=== PATIENT | male | born 1980 | race Caucasian/White ===

== ENCOUNTER 2018-05-21 09:42 | Day surgery (SDC) | payer OTHER ==
[2018-05-21] MEDS ORDERED: NA CHLORIDE 0.9% 1,000 ML ONE ×2 (09:58→12:56)
[2018-05-21] MEDS: OXYMETAZOLINE HCL 0.05% 15ML NAS ONE ×4 (10:01→12:30)
[2018-05-21] MEDS ORDERED: OXYMETAZOLINE HCL 0.05% 15ML NAS ONE ×2 (10:19→14:11)
[2018-05-21] MEDS ORDERED: NA CHLORIDE 0.9% 500 ML ONE (10:19)
[2018-05-21] MEDS: LIDOCAINE 1.5% W/EPI AMP 5 ML ONE ×2 (10:59→12:16)
[2018-05-21] MEDS ORDERED: MIDAZOLAM HCL 2 MG/2 ML INJ ONE (12:05)
[2018-05-21] MEDS ORDERED: PROPOFOL 200 MG/20 ML VIAL IV ONE (12:14)
[2018-05-21] MEDS ORDERED: ONDANSETRON 4 MG/2 ML VIAL ONE (12:15)
[2018-05-21] MEDS ORDERED: ROCURONIUM 50 MG/5 ML VIAL IV ONE (12:15)
[2018-05-21] MEDS ORDERED: LIDOCAINE 2% MPF 5 ML VIAL ONE ×2 (12:15→14:41)
[2018-05-21] MEDS ORDERED: FENTANYL CITR 100 MCG/2 ML ONE ×3 (12:15→13:09)
[2018-05-21] MEDS ORDERED: NEOSTIGMINE 1 MG/ML -10 ML VIAL ONE (13:10)
[2018-05-21] MEDS ORDERED: GLYCOPYRROLATE 0.2 MG/ML SYR ONE (13:10)
[2018-05-21] MEDS ORDERED: LABETALOL 20 MG/4ML SYRINGE IV ONE (14:51)
[2018-05-21] MEDS: HYDROMORPHONE HCL 1 MG/ML INJ ONE ×4 (15:24→15:39)
[2018-05-21] MEDS ORDERED: INSULIN -REGULAR HUMAN 50 UNIT/0.5 ML ML ONE ×2 (15:28→16:10)
[2018-05-21] MEDS ORDERED: HYDROMORPHONE HCL 1 MG/ML INJ ONE (16:02)
[2018-05-21] MEDS ORDERED: TRAMADOL HCL 50 MG TAB ONE (17:05)
[2018-05-21] MEDS ORDERED: ONDANSETRON 4 MG (ODT) TAB ONE (17:50)
--- NOTE | 2018-05-22 19:15 | OP ---
Date of Procedure: 05/21/2018 Surgeon: Danielle Rodríguez MD Preoperative Diagnosis: Chronic greene sinusitis. Postoperative Diagnosis: Chronic greene sinusitis with nasal polyps. Indication For Procedure: Mr. Ferrer presented to the clinic with complaints of chronic sinusitis. Evaluation including a culture was performed showing a primary culture of Staph epidermidis with a small amount of Corynebacterium segmentosum. The patient was treated with amoxicillin and Bactrim an d has an underlying diagnosis of type 1 diabetes. After maximal medical therapy he underwent a post treatment CT scan demonstrating complete opacification of the bilateral ethmoid sinuses with partial opacification of the left sphenoid, bilateral maxillary, bilateral frontal sinuses and was also noted to have a right septal spur. The risks, benefits, and alternatives to the surgery were discussed wi th the patient. Due to work restrictions surgery was delayed. The patient also underwent RAST testi showing a positive reaction to dogs, cockroaches, [place], [place] and Jose F grass. Procedure: Bilateral maxillary antrostomy with nasal endoscopy, bilateral nasal endoscopy with total ethmoid and sphenoidotomy, bilateral nasal endoscopy with frontal sinusotomy and stereotactic CT lio igation intraoperatively with extradural cranial location. Complications: None. Specimens: Bilateral sinonasal contents and right middle meatus for an aerobic culture. Blood Loss: Approximately 250 mL. Description Of Procedure: The patient was brought to the operating room. He was placed under genera l anesthesia via oral endotracheal tube. The head of bed was turned [address] lio igation device was secured to the patient's forehead and the post treatment CT scan was loaded into t [employer] system. Registration was performed with the laser pointer in accordance with surgical supervisor's direc tions and the accuracy was felt to be excellent. Verified by [id number] matching including the t ip of the nose, the base of the columella and the bilateral medial lateral canthi. The patient was p repped and draped in a standard fashion for sinus surgery. A 0-degree endoscope was used to perform a nasal endoscopy. The left nasal cavity was noted to have good decongestion following application o f the Afrin with an overall unremarkable appearance of the inferior turbinate and the middle turbinat e. The right nasal cavity turbinates were likewise unremarkable with a prominent septal spur. Need for septoplasty for access was uncertain based on the appearance and was deferred until later in the procedure. The left side was addressed first. The middle turbinate was medialized with a [place]. Th e uncinate process was noted and the ethmoid bulla area appeared significantly edematous with polypoi d swelling. The uncinate process was removed using the backbiter and 90-degree Blakesley. There was severe swelling around the antrostomy. The antrostomy was enlarged by removal of soft and bony tiss ue until an adequate opening was created. There was thick mucoid secretions within the sinus and for ceful irrigation was performed. Photo documentation using a 30 degree and 70 degree scope was obtain ed. The sinus mucosa was moderately to severely edematous, but was not removed in interest of avoidi ng complete demucosalization. Afrin-soaked pledgets were packed intermittently into the nose to aid in hemostasis. After completion of the maxillary antrostomy, the 0-degree endoscope with the [employer] t navigation suction was used in order to perform ethmoidectomy. The curette was used to dissect the ethmoid cells. The straight 45 and 90-degree [place] were used to remove the edematous polypoid m ucosa and bony fragments. A navigation suction was used to identify the location of the lamina as we ll as the posterior-most aspects of the ethmoid cavity and the skull base. Once these landmarks were identified 30- and 70-degree endoscopes were used to visualize the more anterior aspects of the skul l base and perform dissection in order to remove bony fragments and to open the frontal recess. The frontal recess and frontal sinus were opened and well visualized, but the mucosa within the frontal r ecess was persistently edematous. The decision was made to avoid complete removal and demucosalizati on of the frontal recess in light of the ability to now provide topical medications to these areas. Afrin-soaked pledgets were packed into the left sinus cavities and the right side for several minutes and then removed. The 0-degree endoscope with the straight navigation suction was then used for guadalupe ntification of the sphenoid recess. The sphenoid recess was difficult to cannulate with the suction due to its size and the Entellus balloon was used to carefully palpate along the face of the sphenoid in order to locate the natural os. After locating the natural os, it was dilated. Then following t his dilation, I was able to use the microdebrider with the inferior turbinate blade as well as the sp henoid punch in order to enlargen the sphenoid osteotomy. The sphenoid was suctioned and had copious thick eosinophilic like mucosa. I did not see any evidence of fungal debris or debris suggestive of allergic fungal sinusitis at this time. Afrin-soaked pledgets were applied to the left nasal cavity and attention was turned to the right side. A similar procedure was performed on the right side wit h opening of the maxillary sinus due to the amount of bleeding and inflammation. After removal of th e uncinate and initial probing of the maxillary, attention was turned to the ethmoid and the maxillar y sinus was addressed later in the case. The ethmoid air cells were dissected. There was lots of po lypoid tissue and during removal of this polypoid tissue a large fragment of the middle turbinate was inadvertently removed. Great care was undertaken during further portions of the dissection due to t he loss of this landmark in order to avoid violation of the skull base. Dissection was carried out a long the lamina and to the posterior air cells and onto the face of the sphenoid. Dissection was car ried out along the skull base using the 90-degree Blakesley as well as the front to back and side-to- side Giraffe with the 30- and 70-degree scopes. The right frontal recess was widely opened and thoro ughly irrigated. The right sphenoid was dilated with the balloon and then the os was enlarged by rem oval of bony and soft tissue. During dissection of the frontal recess due to the degree of edema, it was difficult to confirm the location of the frontal recess and the Entellus balloon was used to aid in navigating and ensuring the true frontal recess was probed in order to avoid injury to the skull base. Photo documentation of the frontal sinusotomy was obtained. Then attention was turned back to the lateral nasal wall and the maxillary antrostomy was refined by removal of polypoid soft tissue. The lining of the maxillary sinus was noted to be moderately edematous, but demucosalization of the sinus was avoided. At the conclusion of the case the sinuses were forcefully irrigated with several 100 mL of normal saline and were thoroughly suctioned. Additional thick eosinophilic mucus was sucti oned from the left sinus. Finally, a PROPEL Mini steroid eluting stent was placed under endoscopic g uidance into the bilateral frontal recess. A standard propel was placed within the ethmoid cavity of both sides. Due to mild oozing a Xerogel piece of dissolvable sinus packing was folded and placed w ithin the bilateral ethmoid cavity and soaked with nasal saline. The nasopharynx was thoroughly suct ioned. The decision to include septoplasty was deferred due to risks of increased pain, decreased co mpliance in postoperative care and increased pain and discomfort with postoperative debridements. Th e patient will be reassessed through the healing period. Regarding the health of the sinuses overall , the condition and treatment for his respiratory allergens and consideration for allergy referral wi ll be discussed. Given the patient's underlying diabetes, I will plan to start him on steroid irriga tions for the sinuses likely at his first postoperative visit pending overall appearance. I will con tact the patient on Thursday regarding results of the culture and order to start antibiotic therapy and assess whether formal septoplasty is needed based on the degree of symptoms once the sinus and aller gy issues are adequately treated. IAM Voice ID: [id number] Report ID: [id number]
== END 2018-05-21 17:50 | disposition home or self-care (01) ==
LOC: OR 09:42
PROVIDERS: ATTEND Otolaryngology
PROC: 09BU8ZZ Excision of Right Ethmoid Sinus, Via Natural or Artificial Opening Endoscopic (ICD-10-PCS; 2018-05-21)
PROC: 09BT8ZZ Excision of Left Frontal Sinus, Via Natural or Artificial Opening Endoscopic (ICD-10-PCS; 2018-05-21)
PROC: 09BW8ZZ Excision of Right Sphenoid Sinus, Via Natural or Artificial Opening Endoscopic (ICD-10-PCS; 2018-05-21)
PROC: 09BX8ZZ Excision of Left Sphenoid Sinus, Via Natural or Artificial Opening Endoscopic (ICD-10-PCS; 2018-05-21)
PROC: 09BQ8ZZ Excision of Right Maxillary Sinus, Via Natural or Artificial Opening Endoscopic (ICD-10-PCS; 2018-05-21)
PROC: 09BR8ZZ Excision of Left Maxillary Sinus, Via Natural or Artificial Opening Endoscopic (ICD-10-PCS; 2018-05-21)
PROC: 09BS8ZZ Excision of Right Frontal Sinus, Via Natural or Artificial Opening Endoscopic (ICD-10-PCS; 2018-05-21)
PROC: 8E09XBZ Computer Assisted Procedure of Head and Neck Region (ICD-10-PCS; 2018-05-21)
PROC: 09BV8ZZ Excision of Left Ethmoid Sinus, Via Natural or Artificial Opening Endoscopic (ICD-10-PCS; principal; 2018-05-21 11:15)
DX: J32.4 Chronic pansinusitis (principal); J34.2 Deviated nasal septum; J33.9 Nasal polyp, unspecified; E10.9 Type 1 diabetes mellitus without complications; Z79.4 Long term (current) use of insulin
CPT/HCPCS: 82962; 87070; 88304; 88305; 88312; J1170; J2001; J2250; J2405; J2704; J2710; J3010; J7030

== ENCOUNTER 2019-02-17 17:36 | Emergency (ER) | payer OTHER ==
--- OUTSIDE RECORDS SUMMARY | 2019-02-17 17:38 | XMS REPORT | Summary of Care ---
:1980 Author Organization [facility] - Health Address [address] [place] [address] Care Team Providers Name Role Phone Pcp, Patient Does Not Have A Primary Care Provider Encounter Details Date Type Department Care Team Description 09/30/2018 Orders Only [facility] Doctor Unassigned, No [address] [facility] [place] [place] [address] [address] [place] [address] Allergies No Known Allergiesdocumented as of this encounter (statuses as of 10/01/2018) Medications Medication Sig Dispensed Refills Start Date End Date Status insulin detemir inject 20 Units 0 Active (LEVEMIR FLEXPEN SC) under the skin. insulin lispro inject under the 0 Active (HUMALOG PEN SC) skin. LISINOPRIL ORAL Take by mouth. 0 Active documented as of this encounter (statuses as of 10/01/2018) Active Problems Problem Noted Date DKA (diabetic ketoacidoses) 01/25/2016 documented as of this encounter (statuses as of 10/01/2018) Immunizations Name Administration Dates Next Due Pneumococcal Polysaccharide, PPSV23 (PNEUMOVAX) 01/29/2016 documented as of this encounter Social History Tobacco Use Types Packs/Day Years Used Date Never Smoker Smokeless Tobacco: Former User Alcohol Use Drinks/Week oz/Week Comments Yes Sex Assigned at Date Recorded Not on file Job Start Date Occupation Industry Not on file Not on file Not on file Travel History Travel Start Travel End No recent travel history available. documented as of this encounter Last Filed Vital Signs Not on filedocumented in this encounter Plan of Treatment Date Type Specialty Care Team Description 12/31/2018 Office Visit Endocrinology Diabetes [facility] [address] [facility] [place] [id number] [phone] Health Maintenance Due Date Last Done Comments EYE EXAM 1991 VARICELLA VACCINES (1 of 2 - 13+ 1994 2-dose series) FOOT EXAM 1999 DTaP,Tdap,and Td Vaccines (1 - 02/25/2000 Tdap) LDL-C 03/09/2004 03/09/2003 URINE MICROALBUMIN 03/09/2004 03/09/2003 CREATININE (SERUM) 01/28/2017 01/29/2016, 01/29/2016, 01/28/2016, Additional history exists INFLUENZA VACCINE 10/24/2018 HgA1C 02/12/2019 08/13/2018, 01/25/2016, 03/09/2003 PNEUMOCOCCAL 0-64 YEARS COMBINED Completed 01/29/2016 SERIES documented as of this encounter Procedures Procedure Name Priority Date/Time Associated Diagnosis Comments REFERRAL- Routine 09/30/2018 12:01 AM CDT REQUEST/RESPONSE documented in this encounter Results Not on filedocumented in this encounter Insurance Payer Benefit Plan / Subscriber ID Effective Dates Phone Address Type Group AETNA AETNA O [id number] 2014-[facility] [place] [facility] [id number] 2016-[employer] [place] [id number] documented as of this encounter
--- OUTSIDE RECORDS SUMMARY | 2019-02-17 17:38 | XMS REPORT ---
:1980 Author [facility] Address [address] [place] [address] Care Team Providers Name Role Phone Unavailable Unavailable Unavailable Payers Payer Name Policy Type Policy Number Effective Date Expiration Date Problems This patient has no known problems. Allergies, Adverse Reactions, Alerts Allergy Allergy Status Severity Reaction(s) Onset Inactive Treating Comments Name Type Date Date Clinician No Known DA Active U 2018-12 Allergies 12 00:00:0 0 Medications This patient has no known medications. Results Test Description Test Time Test Comments Text Results Atomic Results Result Comments GLUCOSE BEDSIDE TESTING 2019-01-07 10:49:00 Test Item Value Reference Range Comments GLUCOSE BEDSIDE TESTING (test code=GLUBED) 349 mg/dL 70-110 GLUCOSE BEDSIDE [id number] 07:48:00 Test Item Value Reference Range Comments GLUCOSE BEDSIDE TESTING (test code=GLUBED) 301 mg/dL 70-110 GLUCOSE BEDSIDE [id number] 20:02:00 Test Item Value Reference Range Comments GLUCOSE BEDSIDE TESTING (test code=GLUBED) 191 mg/dL 70-110 GLUCOSE BEDSIDE [id number] 15:56:00 Test Item Value Reference Range Comments GLUCOSE BEDSIDE TESTING (test code=GLUBED) 245 mg/dL 70-110 GLUCOSE BEDSIDE [id number] 11:28:00 Test Item Value Reference Range Comments GLUCOSE BEDSIDE TESTING (test code=GLUBED) 288 mg/dL 70-110 GLUCOSE BEDSIDE [id number] 07:54:00 Test Item Value Reference Range Comments GLUCOSE BEDSIDE TESTING (test code=GLUBED) 208 mg/dL 70-110 BASIC METABOLIC [id number] 07:19:00 Test Item Value Reference Range Comments SODIUM (test code=NA) 143 mmol/L 134-147 POTASSIUM (test code=K) 3.9 mmol/L 3.4-5.0 CHLORIDE (test code=CL) 111 mmol/L 100-108 CARBON DIOXIDE (test code=CO2) 26 mmol/L 21-32 ANION GAP (test code=GAP) 6.0 GAP calc 4.0-15.0 GLUCOSE (test code=GLU) 178 MG/DL 70-110 BLOOD UREA NITROGEN (test code=BUN) 24 MG/DL 7-18 GLOMERULAR FILTRATION RATE (test >=60 max estimate estGFR >60 code=GFR) CREATININE (test code=CREAT) 1.0 MG/DL 0.8-1.3 CALCIUM (test code=CA) 7.9 MG/DL 8.5-10.1 CBC W/AUTO [id number] 07:05:00 Test Item Value Reference Range Comments WHITE BLOOD CELL (test code=WBC) 13.4 K/mm3 3.5-11.0 RED BLOOD CELL (test code=RBC) 4.01 M/mm3 4.70-6.10 HEMOGLOBIN (test code=HGB) 12.7 G/DL 12.3-15.9 HEMATOCRIT (test code=HCT) 38.7 % 35.8-46.7 MEAN CELL VOLUME (test code=MCV) 96.5 Fl 86.3-98.9 MEAN CELL HGB (test code=MCH) 31.7 pg 28.9-34.4 MEAN CELL HGB CONCETRATION (test code=MCHC) 32.8 G/DL 32.1-34.5 RED CELL DISTRIBUTION WIDTH (test code=RDW) 12.7 SD 11.5-14.5 PLATELET COUNT (test code=PLT) 278.0 K/mm3 150-450 MEAN PLATELET VOLUME (test code=MPV) 10.10 fL 7.0-9.6 NEUTROPHIL % (test code=NT%) 91.1 % 40-76 LYMPHOCYTE % (test code=LY%) 5.7 % 20.5-51.1 MONOCYTE % (test code=MO%) 3.1 % 1.7-9.3 EOSINOPHIL % (test code=EO%) 0.0 % 0.0-6.0 BASOPHIL % (test code=BA%) 0.1 % 0.0-2.0 NEUTROPHIL # (test code=NT#) 12.25 K/mm3 1.8-7.6 LYMPHOCYTE # (test code=LY#) 0.8 K/mm3 0.6-3.0 MONOCYTE # (test code=MO#) 0.4 K/mm3 0.2-1.5 EOSINOPHIL # (test code=EO#) 0.0 K/mm3 0.0-0.4 BASOPHIL # (test code=BA#) 0.0 K/mm3 0.0-0.2 MANUAL DIFF REQUIRED (test code=MDIFF) NO DIFF/SCN CRITERIA GLUCOSE BEDSIDE [id number] 20:45:00 Test Item Value Reference Range Comments GLUCOSE BEDSIDE TESTING (test code=GLUBED) 294 mg/dL 70-110 GLUCOSE BEDSIDE [id number] 17:29:00 Test Item Value Reference Range Comments GLUCOSE BEDSIDE TESTING (test code=GLUBED) 126 mg/dL 70-110 - CT CHEST [id number] 15:30:00 Name: BORIS AKBAR [place] : 1980 Age/S: 38 / M [address] Unit #: [id number] Loc: [place] [address] Phys: Munir Tyler MD Acct: [id number] Dis Date: 01/07/2019 Status : DIS IN PHONE #: [phone] Exam Date: 01/05/2019 1500 FAX #: Reason: PNA EXAMS: CPT: [id number] CT CHEST W/CONTRAST 27323 - CT CHESTW/CONTRAST INDICATION: PNA COMPARISON: None PROCEDURE: Helical CT imaging of the chest was performed following the administration of 100 mL Isovue-300 intravenous contrast. Sagittal and coronal reformats were obtained. One or more of the following dose reduction techniques were used: Automated exposure control, adjustment of the mAand/or kV according to patient size, and/or utilization of iterative reconstruction technique. FINDINGS: LUNGS AND LARGE AIRWAYS: The lungs are well-expanded and clear. No airspace consolidation is seen. PLEURA: No pleural effusion or thickening is identified. HEART: The heart size is normal. No pericardial effusion. VESSELS: The aorta is normal in caliber. No central pulmonary embolism is seen. MEDIASTINUM AND MELQUIADES: No lymphadenopathy. CHEST WALL AND LOWER NECK: Within normal limits. VISUALIZED UPPER ABDOMEN: Within normal limits. BONES: Within normal limits. IMPRESSION: No acute cardiopulmonary finding is identified. LOCATION: B2 PAGE 1 Signed Report (CONTINUED) Name: BORIS AKBAR [place] : 1980 Age/S: 38 / M [address] Unit #: [id number] Loc: [place] [address] Phys: Munir Tyler MD Acct: [id number] Dis Date: 01/07/2019 Status : DIS IN PHONE #: [phone] Exam Date: 01/05/2019 1500 FAX #: Reason: PNA EXAMS: CPT: [id number] CT CHEST W/CONTRAST 62709 <Continued> at 1530 Reported and signed by: Garret Cho M.D. CC: Munir Tyler MD Technologist:Julio C Walls, RT (R)(CT) CTDI: DLP: Trnscb Date/Time: 01/05/2019 (1530) [email or web address] Orig Print D/T: S: 01/12/2019 (0742) PAGE 2 Signed ReportGLUCOSE BEDSIDE [id number] 12:46:00 Test Item Value Reference Range Comments GLUCOSE BEDSIDE TESTING (test code=GLUBED) 379 mg/dL 70-110 BASIC METABOLIC [id number] 11:25:00 Test Item Value Reference Range Comments SODIUM (test code=NA) 137 mmol/L 134-147 POTASSIUM (test code=K) 4.7 mmol/L 3.4-5.0 CHLORIDE (test code=CL) 107 mmol/L 100-108 CARBON DIOXIDE (test code=CO2) 24 mmol/L 21-32 ANION GAP (test code=GAP) 6.0 GAP calc 4.0-15.0 GLUCOSE (test code=GLU) 443 MG/DL 70-110 BLOOD UREA NITROGEN (test code=BUN) 29 MG/DL 7-18 GLOMERULAR FILTRATION RATE (test >=60 max estimate estGFR >60 code=GFR) CREATININE (test code=CREAT) 1.2 MG/DL 0.8-1.3 CALCIUM (test code=CA) 8.0 MG/DL 8.5-10.1 CBC W/AUTO [id number] 11:06:00 Test Item Value Reference Range Comments WHITE BLOOD CELL (test code=WBC) 14.0 K/mm3 3.5-11.0 RED BLOOD CELL (test code=RBC) 3.97 M/mm3 4.70-6.10 HEMOGLOBIN (test code=HGB) 12.7 G/DL 12.3-15.9 HEMATOCRIT (test code=HCT) 38.3 % 35.8-46.7 MEAN CELL VOLUME (test code=MCV) 96.5 Fl 86.3-98.9 MEAN CELL HGB (test code=MCH) 32.0 pg 28.9-34.4 MEAN CELL HGB CONCETRATION (test code=MCHC) 33.2 G/DL 32.1-34.5 RED CELL DISTRIBUTION WIDTH (test code=RDW) 12.8 SD 11.5-14.5 PLATELET COUNT (test code=PLT) 279.0 K/mm3 150-450 MEAN PLATELET VOLUME (test code=MPV) 9.80 fL 7.0-9.6 NEUTROPHIL % (test code=NT%) 89.8 % 40-76 LYMPHOCYTE % (test code=LY%) 6.0 % 20.5-51.1 MONOCYTE % (test code=MO%) 4.0 % 1.7-9.3 EOSINOPHIL % (test code=EO%) 0.1 % 0.0-6.0 BASOPHIL % (test code=BA%) 0.1 % 0.0-2.0 NEUTROPHIL # (test code=NT#) 12.60 K/mm3 1.8-7.6 LYMPHOCYTE # (test code=LY#) 0.8 K/mm3 0.6-3.0 MONOCYTE # (test code=MO#) 0.6 K/mm3 0.2-1.5 EOSINOPHIL # (test code=EO#) 0.0 K/mm3 0.0-0.4 BASOPHIL # (test code=BA#) 0.0 K/mm3 0.0-0.2 MANUAL DIFF REQUIRED (test code=MDIFF) NO DIFF/SCN CRITERIA GLUCOSE BEDSIDE [id number] 08:22:00 Test Item Value Reference Range Comments GLUCOSE BEDSIDE TESTING (test code=GLUBED) 293 mg/dL 70-110 GLUCOSE BEDSIDE [id number] 20:46:00 Test Item Value Reference Range Comments GLUCOSE BEDSIDE TESTING (test code=GLUBED) 346 mg/dL 70-110 GLYCOSYLATED HEMOGLOBIN [id number] 17:32:00 Test Item Value Reference Range Comments GLYCOSYLATED HEMOGLOBIN (HA1C) (test 8.4 % A1C 4.2-6.3 code=GLYHGB) ESTIMATED AVERAGE GLUCOSE (test code=EAG) 194 MG/DLest GLUCOSE BEDSIDE [id number] 16:14:00 Test Item Value Reference Range Comments GLUCOSE BEDSIDE TESTING (test code=GLUBED) 367 mg/dL 70-110 GLUCOSE BEDSIDE [id number] 13:25:00 Test Item Value Reference Range Comments GLUCOSE BEDSIDE TESTING (test code=GLUBED) 306 mg/dL 70-110 CBC W/AUTO [id number] 11:58:00 Test Item Value Reference Range Comments WHITE BLOOD CELL (test 15.7 K/mm3 3.5-11.0 code=WBC) RED BLOOD CELL (test code=RBC) 4.15 M/mm3 4.70-6.10 HEMOGLOBIN (test code=HGB) 13.1 G/DL 12.3-15.9 HEMATOCRIT (test code=HCT) 40.3 % 35.8-46.7 MEAN CELL VOLUME (test 97.1 Fl 86.3-98.9 code=MCV) MEAN CELL HGB (test code=MCH) 31.6 pg 28.9-34.4 MEAN CELL HGB CONCETRATION 32.5 G/DL 32.1-34.5 (test code=MCHC) RED CELL DISTRIBUTION WIDTH 12.8 SD 11.5-14.5 (test code=RDW) PLATELET COUNT (test code=PLT) 268.0 K/mm3 150-450 MEAN PLATELET VOLUME (test 9.80 fL 7.0-9.6 code=MPV) NEUTROPHIL % (test code=NT%) 95.2 % 40-76 LYMPHOCYTE % (test code=LY%) 2.9 % 20.5-51.1 MONOCYTE % (test code=MO%) 0.8 % 1.7-9.3 EOSINOPHIL % (test code=EO%) 0.8 % 0.0-6.0 BASOPHIL % (test code=BA%) 0.3 % 0.0-2.0 NEUTROPHIL # (test code=NT#) 14.98 K/mm3 1.8-7.6 LYMPHOCYTE # (test code=LY#) 0.5 K/mm3 0.6-3.0 MONOCYTE # (test code=MO#) 0.1 K/mm3 0.2-1.5 EOSINOPHIL # (test code=EO#) 0.1 K/mm3 0.0-0.4 BASOPHIL # (test code=BA#) 0.0 K/mm3 0.0-0.2 MANUAL DIFF REQUIRED (test NO DIFF/SCN CRITERIA SLIDE REVIEW CONSISTANT code=MDIFF) WITH AUTO DIFFERENTIAL. - XR CHEST 1 [id number] 11:18:00 Name: BORIS [place]BARland : 1980 Age/S: 38 / M [id number] Unit #: [id number] Loc: [place] [address] Phys: Gallo Brewer MD Acct: [id number] Dis Date: Status: REG ER PHONE #: [phone] Exam Date: 01/04/2019 1045 FAX #: Reason: cough EXAMS: CPT: [id number] XR CHEST 1 V 78200 Fluoro Time: DAP (Gy m2): Air Kerma (mGy): EXAMINATION: - XR CHEST 1 V. LOCATION: S 17. HISTORY: cough. COMPARISON: None. TECHNIQUE: Single AP view of the chest was obtained. FINDINGS: The heart is normal in size. The lungs are clear. No acute osseous abnormality is identified. IMPRESSION: No acute cardiopulmonary abnormality. at 1118 Reported and signed by: Girma Carrasco M.D. CC: Gallo Brewer MD PAGE 1 Signed Report Name: BORIS AKBAR [place] : 1980 Age/S: 38 / M [address] [address] Unit #: [id number]: [place] [address] Phys: Gallo Brewer MD Acct: [id number] Dis Date: Status: REG ER PHONE #: [phone] Exam Date: 01/04/2019 1045 FAX #: Reason: cough EXAMS: CPT: [id number] XR CHEST 1 V 49685 Fluoro Time: DAP (Gy m2): Air Kerma (mGy): & lt;Continued> Technologist: Jose Carrillo RT(R)(CT) Trnscb Date/Time: 01/04/2019 (1110) [email or web address] Orig Print D/T: S: 01/04/2019 (3973) PAGE 2 Signed ReportBASIC METABOLIC [id number] 11:08:00 Test Item Value Reference Range Comments SODIUM (test code=NA) 141 mmol/L 134-147 POTASSIUM (test code=K) 3.9 mmol/L 3.4-5.0 CHLORIDE (test code=CL) 111 mmol/L 100-108 CARBON DIOXIDE (test code=CO2) 25 mmol/L 21-32 ANION GAP (test code=GAP) 5.0 GAP calc 4.0-15.0 GLUCOSE (test code=GLU) 271 MG/DL 70-110 BLOOD UREA NITROGEN (test code=BUN) 26 MG/DL 7-18 GLOMERULAR FILTRATION RATE (test >=60 max estimate estGFR >60 code=GFR) CREATININE (test code=CREAT) 1.1 MG/DL 0.8-1.3 CALCIUM (test code=CA) 7.8 MG/DL 8.5-10.1 BASIC METABOLIC [id number] 11:07:00 Test Item Value Reference Range Comments SODIUM (test code=NA) 141 mmol/L 134-147 POTASSIUM (test code=K) 3.9 mmol/L 3.4-5.0 CHLORIDE (test code=CL) 111 mmol/L 100-108 CARBON DIOXIDE (test code=CO2) 25 mmol/L 21-32 ANION GAP (test code=GAP) 5.0 GAP calc 4.0-15.0 GLUCOSE (test code=GLU) 271 MG/DL 70-110 BLOOD UREA NITROGEN (test code=BUN) 26 MG/DL 7-18 GLOMERULAR FILTRATION RATE (test code=GFR) estGFR >60 CREATININE (test code=CREAT) MG/DL 0.8-1.3 CALCIUM (test code=CA) 7.8 MG/DL 8.5-10.1 CBC W/AUTO [id number] 10:58:00 Test Item Value Reference Range Comments WHITE BLOOD CELL (test code=WBC) 15.7 K/mm3 3.5-11.0 RED BLOOD CELL (test code=RBC) 4.15 M/mm3 4.70-6.10 HEMOGLOBIN (test code=HGB) 13.1 G/DL 12.3-15.9 HEMATOCRIT (test code=HCT) 40.3 % 35.8-46.7 MEAN CELL VOLUME (test code=MCV) 97.1 Fl 86.3-98.9 MEAN CELL HGB (test code=MCH) 31.6 pg 28.9-34.4 MEAN CELL HGB CONCETRATION (test code=MCHC) 32.5 G/DL 32.1-34.5 RED CELL DISTRIBUTION WIDTH (test code=RDW) 12.8 SD 11.5-14.5 PLATELET COUNT (test code=PLT) 268.0 K/mm3 150-450 MEAN PLATELET VOLUME (test code=MPV) 9.80 fL 7.0-9.6 NEUTROPHIL % (test code=NT%) % 40-76 LYMPHOCYTE % (test code=LY%) % 20.5-51.1 MONOCYTE % (test code=MO%) % 1.7-9.3 EOSINOPHIL % (test code=EO%) % 0.0-6.0 BASOPHIL % (test code=BA%) % 0.0-2.0 NEUTROPHIL # (test code=NT#) K/mm3 1.8-7.6 LYMPHOCYTE # (test code=LY#) K/mm3 0.6-3.0 MONOCYTE # (test code=MO#) K/mm3 0.2-1.5 EOSINOPHIL # (test code=EO#) K/mm3 0.0-0.4 BASOPHIL # (test code=BA#) K/mm3 0.0-0.2 MANUAL DIFF REQUIRED (test code=MDIFF) DIFF/SCN CRITERIA LACTIC ACID [id number] 10:56:00 Test Item Value Reference Range Comments LACTIC ACID POC (test code=LACTP) 1.08 MMOL/L 0.90-1.70
[2019-02-17] MEDS ORDERED: METHYLPREDNISOLONE 125 MG INJ ONE (18:54)
[2019-02-17] MEDS ORDERED: NA CHLORIDE 0.9% 1,000 ML ONE ×2 (18:54→20:00)
[2019-02-17] MEDS ORDERED: CEFTRIAXONE/SWI 1gm 1 GM/10 ML SYR ONE (18:54)
[2019-02-17] MEDS ORDERED: LEVALBUTEROL 1.25 MG/3 ML NEB ONE ×2 (18:54→20:00)
[2019-02-17] MEDS ORDERED: IPRATROPIUM BROM 0.5MG/2.5ML ONE (18:54)
[2019-02-17] MEDS ORDERED: Magnesium Sulfate 2gm IVPB 2 G/50 ML BAG IV ONE (18:55)
[2019-02-17 18:58] LABS: Absolute Lymphocytes (CBC) 0.6 K/uL (0.7-4.9); Hematocrit 44.8 % (39.6-49.0); Lymphocytes % 7.6 % (15.3-44.8); MPV 8.5 fL (7.6-11.3); RBC Red Blood Cell Count 4.68 M/uL (4.33-5.43)
[2019-02-17 19:10] LABS: Potassium 4.6 mmol/L (3.5-5.1)
--- NOTE | 2019-02-17 20:09 | RAD REPORT ---
EXAM DESCRIPTION: RAD - Chest Pa And Lat (2 Views) - 02/17/2019 6:54 pm CLINICAL HISTORY: Cough;Congestion COMPARISON: None. TECHNIQUE: PA and lateral views of the chest were obtained. FINDINGS: The lungs are clear. Heart size is normal and central vasculature is within normal limit s. No pleural effusion or pneumothorax seen. No acute bony finding noted. No aortic abnormality. IMPRESSION: No acute cardiopulmonary process.
--- NOTE | 2019-02-17 20:17 | EDPHYS ---
Physician Documentation [facility] Name: Chang Ferrer Age: 38 yrs Sex: Male : 1980 Arrival Date: 02/17/2019 Time: 17:37 Bed 5 Private MD: ED Physician Carl Bernabe HPI: 02/17 19:21 This 38 yrs old Male presents to ER via Ambulatory with complaints of kb Shortness Of Breath. 19:21 The patient has shortness of breath at rest. Onset: The symptoms/episode began/occurred kb last week, and became worse. Duration: The symptoms are continuous. The patient's shortness of breath is aggravated by exertion, is alleviated by nothing. Associated signs and symptoms: Pertinent positives: non-productive cough, fever. Severity of symptoms: At their worst the symptoms were moderate in the emergency department the symptoms are unchanged. The patient has experienced a previous episode. The patient has been recently seen by a physician:. Pt was admitted to [facility] a month ago for pneumonia. Reports it never really got completely better, but it became worse this week. Historical: - Allergies: 18:06 No Known Allergies; iw - Home Meds: 18:06 Tresiba FlexTouch U-100 100 unit/mL (3 mL) subcutaneous inpn 25 unit daily [Active]; iw Humalog 100 unit/mL Sub-Q crtg sliding scale [Active]; - PMHx: 18:06 Diabetes - IDDM; iw - PSHx: 18:06 sinus; iw - Immunization history:: Adult Immunizations not up to date. - Social history:: Smoking status: Patient/guardian denies using tobacco. - Ebola Screening: : Patient negative for fever greater than or equal to 101.5 degrees Fahrenheit, and additional compatible Ebola Virus Disease symptoms Patient denies exposure to infectious person Patient denies travel to an Ebola-affected area in the 21 days before illness onset No symptoms or risks identified at this time. ROS: 19:19 ENT: Negative for injury, pain, and discharge, Neck: Negative for injury, pain, and kb swelling, Cardiovascular: Negative for chest pain, palpitations, and edema, Abdomen/GI: Negative for abdominal pain, nausea, vomiting, diarrhea, and constipation, Back: Negative for injury and pain, MS/Extremity: Negative for injury and deformity, Skin: Negative for injury, rash, and discoloration, Neuro: Negative for headache, weakness, numbness, tingling, and seizure. 19:19 Constitutional: Positive for fever. 19:19 Respiratory: Positive for cough, shortness of breath. Exam: 19:20 Constitutional: This is a well developed, well nourished patient who is awake, alert, kb and in no acute distress. Head/Face: Normocephalic, atraumatic. Neck: Trachea midline, no thyromegaly or masses palpated, and no cervical lymphadenopathy. Supple, full range of motion without nuchal rigidity, or vertebral point tenderness. No Meningismus. Chest/axilla: Normal chest wall appearance and motion. Nontender with no deformity. No lesions are appreciated. Cardiovascular: Regular rate and rhythm with a normal S1 and S2. No gallops, murmurs, or rubs. Normal PMI, no JVD. No pulse deficits. Abdomen/GI: Soft, non-tender, with normal bowel sounds. No distension or tympany. No guarding or rebound. No evidence of tenderness throughout. Back: No spinal tenderness. No costovertebral tenderness. Full range of motion. Skin: Warm, dry with normal turgor. Normal color with no rashes, no lesions, and no evidence of cellulitis. MS/ Extremity: Pulses equal, no cyanosis. Neurovascular intact. Full, normal range of motion. Neuro: Awake and alert, GCS 15, oriented to person, place, time, and situation. Cranial nerves II-XII grossly intact. Motor strength 5/5 in all extremities. Sensory grossly intact. Cerebellar exam normal. Normal gait. 19:20 Respiratory: the patient does not display signs of respiratory distress, Respirations: normal, Breath sounds: rhonchi, that are moderate, are scattered, wheezing: expiratory that is moderate, is heard diffusely. Vital Signs: 18:06 BP 155 / 96; Pulse 125; Resp 18; Temp 99.8; Pulse Ox 94% on R/A; Weight 75.75 kg; iw Height 5 ft. 9 in. (175.26 cm); Pain 7/10; 18:30 BP 160 / 92; Pulse 126; Resp 28 S; Temp 100.3(O); Pulse Ox 95% on R/A; jl7 19:39 Pulse 121; Resp 22 S; Pulse Ox 97% on R/A; jd3 20:31 Pulse 119; Resp 21 S; Pulse Ox 100% on R/A; jd3 18:06 Body Mass Index 24.66 (75.75 kg, 175.26 cm) iw MDM: 18:17 Patient medically screened. kb 19:19 Data reviewed: vital signs, nurses notes. Data interpreted: Pulse oximetry: on room air kb is 95 %. Interpretation: acceptable. 20:08 Counseling: I had a detailed discussion with the patient and/or guardian regarding: the kb historical points, exam findings, and any diagnostic results supporting the discharge/admit diagnosis, lab results, radiology results, the need for outpatient follow up, a family practitioner, to return to the emergency department if symptoms worsen or persist or if there are any questions or concerns that arise at home. 20:15 ED course: Wheezing decreased after treatment. Pt reports he feels much better. kb 02/17 18:29 Order name: Basic Metabolic Panel; Complete Time: 19:11 kb 02/17 18:29 Order name: Blood Culture Adult (2) kb 02/17 18:29 Order name: CBC with Diff; Complete Time: 20:30 kb 02/17 18:29 Order name: Lactate; Complete Time: 19:17 kb 02/17 18:29 Order name: Procalcitonin; Complete Time: 19:27 kb 02/17 18:29 Order name: Chest Pa And Lat (2 Views) XRAY; Complete Time: 20:14 kb 02/17 18:29 Order name: D-Dimer; Complete Time: 19:01 kb 02/17 18:53 Order name: Glucose, Ancillary Testing; Complete Time: 18:54 EDMS 02/17 18:54 Order name: Flu; Complete Time: 19:43 kb 02/17 20:28 Order name: Manual Differential; Complete Time: 20:30 EDMS 02/17 18:29 Order name: Cardiac monitoring; Complete Time: 18:49 kb 02/17 18:29 Order name: EKG - Nurse/Tech; Complete Time: 18:51 kb 02/17 18:29 Order name: IV Saline Lock - Large Bore; Complete Time: 18:49 kb 02/17 18:29 Order name: Labs collected and sent; Complete Time: 18:49 kb 02/17 18:29 Order name: O2 Per Protocol; Complete Time: 18:49 kb 02/17 18:29 Order name: O2 Sat Monitoring; Complete Time: 18:49 kb Administered Medications: 18:55 Drug: SOLU-Medrol 125 mg Route: IVP; Site: left antecubital; [facility] 19:55 Follow up: Response: No adverse reaction jd3 18:58 Drug: Rocephin 1 grams Route: IV; Rate: calculated rate; Site: left antecubital; [facility] 19:15 Follow up: Response: No adverse reaction; IV Status: Completed infusion jd3 19:00 Drug: NS 0.9% 1000 ml Route: IV; Rate: 1000 ml; Site: left antecubital; 7 20:00 Follow up: Response: No adverse reaction; IV Status: Completed infusion; IV Intake: jd3 1000ml 19:00 Drug: Magnesium Sulfate 2 grams Route: IVPB; Infused Over: 2 hrs; Site: left [facility] antecubital; 20:32 Follow up: Response: No adverse reaction; IV Status: Completed infusion jd3 19:00 Drug: Xopenex (3) 1.25 mg Route: Inhalation; 7 20:33 Follow up: Response: No adverse reaction jd3 19:00 Drug: AtroVENT Aerosol 0.5 mg Route: Inhalation; 7 20:33 Follow up: Response: No adverse reaction jd3 20:01 Drug: Xopenex (3) 1.25 mg Route: Inhalation; jd3 20:34 Follow up: Response: No adverse reaction jd3 20:01 Drug: NS 0.9% 1000 ml Route: IV; Rate: 1000 ml; Site: left antecubital; jd3 20:34 Follow up: Response: No adverse reaction; IV Status: Completed infusion j Disposition: 02/18 05:55 Co-signature as Attending Physician, Carl Bernabe MD I agree with the assessment and rn plan of care. Disposition: 02/17/19 20:15 Discharged to Home. Impression: Bronchitis, not specified as acute or chronic. - Condition is Stable. - Discharge Instructions: Acute Bronchitis, [id number]-[id number], Viral Respiratory Infection, Ipbx-Qq-Eimm. - Prescriptions for Prednisone 20 mg Oral Tablet - take 1 tablet by ORAL route once daily for 5 days; 5 tablet. Albuterol Sulfate 90 mcg/actuation - inhale 1-2 puff by INHALATION route every 4-6 hours; 1 Inhaler. - Medication Reconciliation Form, Thank You Letter, Antibiotic Education, Prescription Opioid Use form. - Follow up: Emergency Department; When: As needed; Reason: Worsening of condition. Follow up: Private Physician; When: 2 - 3 days; Reason: Recheck today's complaints, Continuance of care, Re-evaluation by your physician. Signatures: Dispatcher [employer] EDNE LaureanoJaleelNadia, DUST MIXER-C DUST MIXER-Ckb Gela Dawson, RN RN Carl Barclay MD MD rn Leal, Jahala, RN RN jl7 Ej Stringer RN RN jd3 Corrections: (The following items were deleted from the chart) 02/17 20:35 20:15 02/17/2019 20:15 Discharged to Home. Impression: Bronchitis, not specified as jd3 acute or chronic. Condition is Stable. Forms are Medication Reconciliation Form, Thank You Letter, Antibiotic Education, Prescription Opioid Use. Follow up: Emergency Department; When: As needed; Reason: Worsening of condition. Follow up: Private Physician; When: 2 - 3 days; Reason: Recheck today's complaints, Continuance of care, Re-evaluation by your physician. kb
--- NOTE | 2019-02-17 20:17 | ER ---
Nurse's Notes [facility] Name: Chang Ferrer Age: 38 yrs Sex: Male : 1980 Arrival Date: 02/17/2019 Time: 17:37 Bed 5 Private MD: Diagnosis: Bronchitis, not specified as acute or chronic Presentation: 02/17 18:04 Presenting complaint: Patient states: bad cough and congestion X 2 weeks, worse today, iw SOb today and pain with cough, no fever, productive cough. Transition of care: patient was not received from another setting of care. Onset of symptoms was January 27, 2019. Risk Assessment: Do you want to hurt yourself or someone else? Patient reports no desire to harm self or others. Initial Sepsis Screen: Does the patient meet any 2 criteria? HR > 90 bpm. Does the patient have a suspected source of infection? Yes: Productive cough/pneumonia. Care prior to arrival: None. 18:04 Method Of Arrival: Ambulatory iw 18:04 Acuity: WEI 3 iw Triage Assessment: 19:41 Respiratory: Onset: The symptoms/episode began/occurred gradually, the patient has mild jd3 shortness of breath. Historical: - Allergies: 18:06 No Known Allergies; iw - Home Meds: 18:06 Tresiba FlexTouch U-100 100 unit/mL (3 mL) subcutaneous inpn 25 unit daily [Active]; iw Humalog 100 unit/mL Sub-Q crtg sliding scale [Active]; - PMHx: 18:06 Diabetes - IDDM; iw - PSHx: 18:06 sinus; iw - Immunization history:: Adult Immunizations not up to date. - Social history:: Smoking status: Patient/guardian denies using tobacco. - Ebola Screening: : Patient negative for fever greater than or equal to 101.5 degrees Fahrenheit, and additional compatible Ebola Virus Disease symptoms Patient denies exposure to infectious person Patient denies travel to an Ebola-affected area in the 21 days before illness onset No symptoms or risks identified at this time. Screenin:30 Abuse screen: Denies threats or abuse. Denies injuries from another. Nutritional jl7 screening: No deficits noted. Tuberculosis screening: No symptoms or risk factors identified. Fall Risk IV access (20 points). Total Luna Fall Scale indicates No Risk (0-24 pts). Assessment: 18:30 General: Appears in no apparent distress. uncomfortable, Behavior is calm, cooperative, jl7 appropriate for age. Pain: Denies pain. Neuro: Level of Consciousness is awake, alert, obeys commands, Oriented to person, place, time, situation. Cardiovascular: Heart tones S1 S2 present Patient's skin is warm and dry. Rhythm is regular. Respiratory: Reports shortness of breath cough that is productive, Airway is patent Respiratory effort is even, labored, Respiratory pattern is symmetrical, tachypnea Breath sounds are coarse bilaterally. Breath sounds with wheezes. GI: No signs and/or symptoms were reported involving the gastrointestinal system. : No signs and/or symptoms were reported regarding the genitourinary system. EENT: No signs and/or symptoms were reported regarding the EENT system. Derm: Skin is pink, warm \T\ dry. Musculoskeletal: No signs and/or symptoms reported regarding the musculoskeletal system. 19:38 General: Appears in no apparent distress. uncomfortable, Behavior is calm, cooperative, jd3 appropriate for age. Pain: Denies pain. Neuro: Level of Consciousness is awake, alert, obeys commands, Oriented to person, place, time, situation. Cardiovascular: Capillary refill Patient's skin is warm and dry. Rhythm is sinus tachycardia. Respiratory: Reports shortness of breath cough that is productive, Airway is patent Respiratory effort is even, labored, Respiratory pattern is symmetrical, tachypnea Breath sounds are coarse Breath sounds with wheezes bilaterally. GI: No signs and/or symptoms were reported involving the gastrointestinal system. : No signs and/or symptoms were reported regarding the genitourinary system. EENT: No signs and/or symptoms were reported regarding the EENT system. Derm: Skin is intact, Skin is dry, Skin is normal, Skin temperature is warm. Musculoskeletal: Circulation, motion, and sensation intact. Range of motion: intact in all extremities. 19:39 Reassessment: Patient states feeling better. jd3 20:29 Reassessment: Patient appears in no apparent distress at this time. Patient and/or jd3 family updated on plan of care and expected duration. Pain level reassessed. Patient is alert, oriented x 3, equal unlabored respirations, skin warm/dry/pink. reported understanding of discharge instructions. even and steady gait. Patient states feeling better. Vital Signs: 18:06 BP 155 / 96; Pulse 125; Resp 18; Temp 99.8; Pulse Ox 94% on R/A; Weight 75.75 kg; iw Height 5 ft. 9 in. (175.26 cm); Pain 7/10; 18:30 BP 160 / 92; Pulse 126; Resp 28 S; Temp 100.3(O); Pulse Ox 95% on R/A; jl7 19:39 Pulse 121; Resp 22 S; Pulse Ox 97% on R/A; jd3 20:31 Pulse 119; Resp 21 S; Pulse Ox 100% on R/A; jd3 18:06 Body Mass Index 24.66 (75.75 kg, 175.26 cm) iw ED Course: 17:37 Patient arrived in ED. rg4 18:05 Triage completed. iw 18:06 Arm band placed on. iw 18:15 Keegan Luu, KACEY is Primary Nurse. jl7 18:16 Nadia Tinsley FNP-C is PHCP. kb 18:16 Carl Bernabe MD is Attending Physician. kb 18:30 Patient has correct armband on for positive identification. Placed in gown. Bed in low jl7 position. Call light in reach. Side rails up X 1. traffic monitor specialist on. Pulse ox on. NIBP on. 18:30 Initial lab(s) drawn, by me, sent to lab. Inserted saline lock: 20 gauge in left jl7 antecubital area, using aseptic technique. Blood collected. 18:54 Chest Pa And Lat (2 Views) XRAY In Process Unspecified. EDMS 20:30 No provider procedures requiring assistance completed. IV discontinued, intact, jd3 bleeding controlled, No redness/swelling at site. Pressure dressing applied. Administered Medications: 18:55 Drug: SOLU-Medrol 125 mg Route: IVP; Site: left antecubital; jl7 19:55 Follow up: Response: No adverse reaction jd3 18:58 Drug: Rocephin 1 grams Route: IV; Rate: calculated rate; Site: left antecubital; jl7 19:15 Follow up: Response: No adverse reaction; IV Status: Completed infusion jd3 19:00 Drug: NS 0.9% 1000 ml Route: IV; Rate: 1000 ml; Site: left antecubital; jl7 20:00 Follow up: Response: No adverse reaction; IV Status: Completed infusion; IV Intake: jd3 1000ml 19:00 Drug: Magnesium Sulfate 2 grams Route: IVPB; Infused Over: 2 hrs; Site: left jl7 antecubital; 20:32 Follow up: Response: No adverse reaction; IV Status: Completed infusion jd3 19:00 Drug: Xopenex (3) 1.25 mg Route: Inhalation; jl7 20:33 Follow up: Response: No adverse reaction jd3 19:00 Drug: AtroVENT Aerosol 0.5 mg Route: Inhalation; jl7 20:33 Follow up: Response: No adverse reaction jd3 20:01 Drug: Xopenex (3) 1.25 mg Route: Inhalation; jd3 20:34 Follow up: Response: No adverse reaction jd3 20:01 Drug: NS 0.9% 1000 ml Route: IV; Rate: 1000 ml; Site: left antecubital; jd3 20:34 Follow up: Response: No adverse reaction; IV Status: Completed infusion jd3 Intake: 20:00 IV: 1000ml; Total: 1000ml. jd3 Outcome: 20:15 Discharge ordered by . kb 20:30 Discharged to home ambulatory, with family. jd3 20:30 Condition: stable 20:30 Discharge instructions given to patient, family, Instructed on discharge instructions, follow up and referral plans. medication usage, Demonstrated understanding of instructions, follow-up care, medications, Prescriptions given X 2. 20:35 Patient left the ED. jd3 Signatures: Dispatcher [employer] EDMS Nadia Tinsley, COMPETITIVE ATHLETE-C COMPETITIVE ATHLETE-Ckb Gela Dawson RN RN iw Garcia, Rubi rg4 Keegan Luu RN RN jl7 Ej Stringer RN RN jd3 Corrections: (The following items were deleted from the chart) 19:44 19:38 Respiratory: Reports shortness of breath cough that is productive, Airway is jd3 patent Respiratory effort is even, labored, Respiratory pattern is symmetrical, tachypnea jd3
[2019-02-17 20:28] LABS: Platelet Estimate ADEQ
[2019-02-17 20:29] LABS: Blood Morphology Comment NOT SEEN (NOT SEEN)
[2019-02-17 22:11] VITALS: BP 160/92; TEMP 100.3
[2019-02-17 22:14] VITALS: O2SAT 100
--- NOTE | 2019-02-18 13:48 | EKG ---
Test Date: 2019-02-17 Test Time: 18:45:50 [facility] [employer] [facility] Worker: MARITZA MEASUREMENT RESULTS: Intervals: Rate: 121 NH: 150 QRSD: 76 QT: 310 QTc: 440 [place]: P: 74 NH: 150 QRS: 62 T: 72 INTERPRETIVE STATEMENTS: Sinus tachycardia Possible Left atrial enlargement Borderline ECG No previous ECG available for comparison Electronically Signed On 02-18-19 13:46:32 [employer] by Lionel Boykin
== END 2019-02-17 20:35 | disposition home or self-care (01) ==
LOC: ER 17:36
DX: J40 Bronchitis, not specified as acute or chronic (principal); E11.9 Type 2 diabetes mellitus without complications; Z79.4 Long term (current) use of insulin
CPT/HCPCS: 96365; 93005; 87040 ×2; 85025; 80048; 36415; 82947; 85379; 83605; 84145; 87804 ×2; 71046; 96375; 99285; J3475; J0696; J7030 ×2; J2930

== ENCOUNTER 2021-01-21 19:08 | Inpatient (IN) | payer OTHER ==
--- OUTSIDE RECORDS SUMMARY | 2021-01-21 19:12 | XMS REPORT | Continuity of Care Document ---
:[address] [facility] t Address [address] [place] [address] Care Team Providers Name Role Phone Pcp, Does Not Have A Primary Care Physician Juan RN, T Attending Clinician Unavailable UNKNOWN Attending Clinician Unavailable Only, Db Test Attending Clinician Unavailable Unknown Attending Clinician Unavailable Baldemar ROLLINS Attending Clinician Unavailable Payers Payer Name Policy Type Policy Number Effective Date Expiration Date Мария BROOKE O [id number] 2014 00:00:00 Problems Condition Condition Condition Status Onset Resolution Last Treating Co mments Source Name Details Category Date Date Treatment Clinician Date Type 1 Type 1 Disease Active Formerly [facility] diabetes diabetes 1-12 ity of mellitus mellitus 00:00: [place] with with 00 Medical 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, eyes, macular macular edema edema presence presence unspecifie unspecifie d, d, unspecifie unspecifie d d proliferat proliferat ricki ricki retinopath retinopath y type y type DKA DKA Disease Active 2015-02 Univers (diabetic (diabetic 2-02 ity of [place] 00 Medical Branch Allergies, Adverse Reactions, Alerts Allergy Allergy Status Severity Reaction(s) Onset Inactive Treating Comm ents Source Name Type Date Date Clinician No Known DA Active U 2018-02 [facility] Allergie 1-12 Clear s 00:00: [place] 00 [facility] NO KNOWN Drug Active Univers ALLERGIE Class ity of S [facility] Social History Social Habit Start Date Stop Date Quantity Comments Source Exposure to Not sure [facility] SARS-CoV-2 [facility] (event) Branch Tobacco use and 2018-09-12 2018-09-12 Former user Universi ty of exposure 00:00:00 00:00:00 [facility] Alcohol intake 2018-09-12 2018-09-12 Current drinker Unive rsity of 00:00:00 00:00:00 of alcohol [facility] (finding) Justin Sex Ass[birth year] At [birth year] Universit y of 00:00:00 00:00:00 [facility] Smoking Status Start Date Stop Date Source Never smoker [facility] Medications Ordered Filled Start Stop Current Ordering Indication Dosage Frequency Signature Comments Components Source Medication Medication Date Date Medication? Clinician (SIG) Name Name insulin Yes 25U inject 25 Unive rs degludec 1-03 Units ity of (TRESIB[place] 17:25[place] U-100 56 skin Medical INSULIN [place]) daily. Branch insulin Yes 25U inject 25 Unive rs degludec 1-03 Units ity of ([place] 17:25: [place] U-100 [place] Medical INSULIN [place]) daily. Branch insulin Yes inject Univers lispro 6-21 under the ity of (HUMALOG 15:33: skin. [place]) [address] [place] [address] LISINOPRIL Yes Take by Uni vers ORAL 6-21 mouth. ity of 15:33: [address] insulin Yes inject Univers lispro 6-21 under the ity of (HUMALOG 15:33: skin. [place]) [address] [place] [address] LISINOPRIL Yes Take by Uni vers ORAL 6-21 mouth. ity of 15:33: [address] Immunizations Ordered Filled Immunization Date Status Comments Sour e Immunization Name Name Pneumococcal 2016-01-29 Completed [employer] o f Polysaccharide, 00:00:00 [facility] ical PPSV23 (PNEUMOVAX) Branch Pneumococcal 2016-01-29 Completed University o f Polysaccharide, 00:00:00 [facility] ica PPSV23 (PNEUMOVAX) Justin Procedures This patient has no known procedures. Encounters Start End Encounter Admission Attending Care Care Encounter Source Date/Time Date/Time Type Type Clinicians Facility Department ID 2020-11-08 2020-11-08 Outpatient [facility] [id number] Univers 00:00:00 00:00:00 [facility] [place] 2020-11-01 2020-11-01 Letter JOSE Martinez [id number] Univers 00:00:00 00:00:00 (Out) Sandra BYERS [id number] it y [facility] [id number] [place] [phone] [address] 2020-10-31 2020-10-31 Outpatient R [facility] [id number] Univers 13:55:00 13:55:00 [id number] [facility] [place] 2020-10-31 2020-10-31 Outpatient R UNKNOWN, [facility] [id number] Univers 13:55:00 13:55:00 ATTENDING [facility] [place] 2020-10-31 2020-10-31 Laboratory Only, Ang Db Test [facility] 1.2.8 [id number] Univers 13:43:17 13:53:17 Only Unknown, Attending [id number] [id number] [place]?Blea [phone] Ok jonathan [address] Medical Office Building 2019-06-03 2019-06-03 Outpatient R RIA, [facility] [id number] Univers 14:30:00 14:30:00 DENNIS [facility] [place] Results Test Description Test Time Test Comments Results Result Comments Source GLUCOSE BEDSIDE TESTING 2019-01-07 10:49:00 Test Item Value Reference Range Interpretation Comme nts GLUCOSE BEDSIDE TESTING (test code = GLUBED) 349 mg/dL 70-110 H GLUCOSE BEDSIDE [id number] 07:48:00 Test Item Value Reference Range Interpretation Comments GLUCOSE BEDSIDE TESTING (test code 301 mg/dL 70-110 H = GLUBED) GLUCOSE BEDSIDE [id number] 20:02:00 Test Item Value Reference Range Interpretation Comments GLUCOSE BEDSIDE TESTING (test code 191 mg/dL 70-110 H = GLUBED) GLUCOSE BEDSIDE [id number] 15:56:00 Test Item Value Reference Range Interpretation Comments GLUCOSE BEDSIDE TESTING (test code 245 mg/dL 70-110 H = GLUBED) GLUCOSE BEDSIDE [id number] 11:28:00 Test Item Value Reference Range Interpretation Comments GLUCOSE BEDSIDE TESTING (test code 288 mg/dL 70-110 H = GLUBED) GLUCOSE BEDSIDE [id number] 07:54:00 Test Item Value Reference Range Interpretation Comments GLUCOSE BEDSIDE TESTING (test code 208 mg/dL 70-110 H = GLUBED) BASIC METABOLIC [id number] 07:19:00 Test Item Value Reference Range Interpretation Comments SODIUM (test code = NA) 143 mmol/L 134-147 N POTASSIUM (test code = 3.9 mmol/L 3.4-5.0 N K) CHLORIDE (test code = 111 mmol/L 100-108 H CL) CARBON DIOXIDE (test 26 mmol/L 21-32 N code = CO2) ANION GAP (test code = 6.0 GAP calc 4.0-15.0 N GAP) GLUCOSE (test code = 178 MG/DL 70-110 H GLU) BLOOD UREA NITROGEN 24 MG/DL 7-18 H (test code = BUN) GLOMERULAR FILTRATION >=60 max estimate >60 RATE (test code = GFR) estGFR CREATININE (test code = 1.0 MG/DL 0.8-1.3 N CREAT) CALCIUM (test code = CA) 7.9 MG/DL 8.5-10.1 L CBC W/AUTO [id number] 07:05:00 Test Item Value Reference Range Interpretation Comments WHITE BLOOD CELL (test code = 13.4 K/mm3 3.5-11.0 H WBC) RED BLOOD CELL (test code = RBC) 4.01 M/mm3 4.70-6.10 L HEMOGLOBIN (test code = HGB) 12.7 G/DL 12.3-15.9 N HEMATOCRIT (test code = HCT) 38.7 % 35.8-46.7 N MEAN CELL VOLUME (test code = 96.5 Fl 86.3-98.9 N MCV) MEAN CELL HGB (test code = MCH) 31.7 pg 28.9-34.4 N MEAN CELL HGB CONCETRATION (test 32.8 G/DL 32.1-34.5 N code = MCHC) RED CELL DISTRIBUTION WIDTH (test 12.7 SD 11.5-14.5 N code = RDW) PLATELET COUNT (test code = PLT) 278.0 K/mm3 150-450 N MEAN PLATELET VOLUME (test code = 10.10 fL 7.0-9.6 H MPV) NEUTROPHIL % (test code = NT%) 91.1 % 40-76 H LYMPHOCYTE % (test code = LY%) 5.7 % 20.5-51.1 L MONOCYTE % (test code = MO%) 3.1 % 1.7-9.3 N EOSINOPHIL % (test code = EO%) 0.0 % 0.0-6.0 N BASOPHIL % (test code = BA%) 0.1 % 0.0-2.0 N NEUTROPHIL # (test code = NT#) 12.25 K/mm3 1.8-7.6 H LYMPHOCYTE # (test code = LY#) 0.8 K/mm3 0.6-3.0 N MONOCYTE # (test code = MO#) 0.4 K/mm3 0.2-1.5 N EOSINOPHIL # (test code = EO#) 0.0 K/mm3 0.0-0.4 N BASOPHIL # (test code = BA#) 0.0 K/mm3 0.0-0.2 N MANUAL DIFF REQUIRED (test code = NO DIFF/SCN CRITERIA MDIFF) GLUCOSE BEDSIDE [id number] 20:45:00 Test Item Value Reference Range Interpretation Comments GLUCOSE BEDSIDE TESTING (test code 294 mg/dL 70-110 H = GLUBED) GLUCOSE BEDSIDE [id number] 17:29:00 Test Item Value Reference Range Interpretation Comments GLUCOSE BEDSIDE TESTING (test code 126 mg/dL 70-110 H = GLUBED) - CT CHEST [id number] 15:30:00 Name: BORIS [place]BARland : 1980 Age/S: 38 / M [id number] [address] [place] Unit #: [id number] Loc: [place] [address] Phys: Munir Tyler MD Acct: [id number] Dis Date: 01/07/2019 Status: DIS IN PHONE #: [phone] Exam Date: 01/05/2019 1500 FAX #: Reason: PNA EXAMS: CPT: [id number] CT CHEST W/CONTRAST 23383 - CT CHESTW/CONTRAST INDICATION: PNA COMPARISON: None PROCEDURE: Helical CT imaging of the chest was performed following the administration of 100 mL Isovue-300 intravenous contrast. Sagittal and coronal reformats were obtained. One or more of the followi ng dose reduction techniques were used: Automated exposure [...] lymphadenopathy. CHEST WALL AND LOWER NECK: Within n ormal limits. VISUALIZED UPPER ABDOMEN: Within normal limits. BONES: Within normal limits. IMPRESSION: No acute cardiopulmonary finding is identified. LOCATION: B2 PAGE 1 Signed Report (CONTINUED) Name: BORIS AKBAR [place] : 1980 Age/S: 38 / M [id number] [facility] [place] Unit #: [id number] Loc: [place] [address] Phys: Munir Tyler MD Acct: [id number] Dis Date: 01/07/2019 Status: DIS IN PHONE #: [phone] Exam Date: 01/05/2019 1500 FAX #: Reason: PNA EXAMS: CPT: [id number] CT CHEST W/CONTRAST 43098 <Continued> at 1530 Reported and signed by: Garret Cho M.D. CC: Munir Tyler MD Technologist:Julio C Walls, RT(R)(CT) CTDI: DLP: Trnscb Date/Time: 01/05/2019 (1530) [email or web address] Orig Print D/T: S: 01/12/2019 (0742) PAGE 2 Signed ReportGLUCOSE BEDSIDE [id number] 12:46:00 Test Item Value Reference Range Interpretation Comments GLUCOSE BEDSIDE TESTING (test code 379 mg/dL 70-110 H = GLUBED) BASIC METABOLIC [id number] 11:25:00 Test Item Value Reference Range Interpretation Comments SODIUM (test code = NA) 137 mmol/L 134-147 N POTASSIUM (test code = 4.7 mmol/L 3.4-5.0 N K) CHLORIDE (test code = 107 mmol/L 100-108 N CL) CARBON DIOXIDE (test 24 mmol/L 21-32 N code = CO2) ANION GAP (test code = 6.0 GAP calc 4.0-15.0 N GAP) GLUCOSE (test code = 443 MG/DL 70-110 H GLU) BLOOD UREA NITROGEN 29 MG/DL 7-18 H (test code = BUN) GLOMERULAR FILTRATION >=60 max estimate >60 RATE (test code = GFR) estGFR CREATININE (test code = 1.2 MG/DL 0.8-1.3 N CREAT) CALCIUM (test code = CA) 8.0 MG/DL 8.5-10.1 L CBC W/AUTO [id number] 11:06:00 Test Item Value Reference Range Interpretation Comments WHITE BLOOD CELL (test code = 14.0 K/mm3 3.5-11.0 H WBC) RED BLOOD CELL (test code = RBC) 3.97 M/mm3 4.70-6.10 L HEMOGLOBIN (test code = HGB) 12.7 G/DL 12.3-15.9 N HEMATOCRIT (test code = HCT) 38.3 % 35.8-46.7 N MEAN CELL VOLUME (test code = 96.5 Fl 86.3-98.9 N MCV) MEAN CELL HGB (test code = MCH) 32.0 pg 28.9-34.4 N MEAN CELL HGB CONCETRATION (test 33.2 G/DL 32.1-34.5 N code = MCHC) RED CELL DISTRIBUTION WIDTH (test 12.8 SD 11.5-14.5 N code = RDW) PLATELET COUNT (test code = PLT) 279.0 K/mm3 150-450 N MEAN PLATELET VOLUME (test code = 9.80 fL 7.0-9.6 H MPV) NEUTROPHIL % (test code = NT%) 89.8 % 40-76 H LYMPHOCYTE % (test code = LY%) 6.0 % 20.5-51.1 L MONOCYTE % (test code = MO%) 4.0 % 1.7-9.3 N EOSINOPHIL % (test code = EO%) 0.1 % 0.0-6.0 N BASOPHIL % (test code = BA%) 0.1 % 0.0-2.0 N NEUTROPHIL # (test code = NT#) 12.60 K/mm3 1.8-7.6 H LYMPHOCYTE # (test code = LY#) 0.8 K/mm3 0.6-3.0 N MONOCYTE # (test code = MO#) 0.6 K/mm3 0.2-1.5 N EOSINOPHIL # (test code = EO#) 0.0 K/mm3 0.0-0.4 N BASOPHIL # (test code = BA#) 0.0 K/mm3 0.0-0.2 N MANUAL DIFF REQUIRED (test code = NO DIFF/SCN CRITERIA MDIFF) GLUCOSE BEDSIDE [id number] 08:22:00 Test Item Value Reference Range Interpretation Comments GLUCOSE BEDSIDE TESTING (test code 293 mg/dL 70-110 H = GLUBED) GLUCOSE BEDSIDE [id number] 20:46:00 Test Item Value Reference Range Interpretation Comments GLUCOSE BEDSIDE TESTING (test code 346 mg/dL 70-110 H = GLUBED) GLYCOSYLATED HEMOGLOBIN [id number] 17:32:00 Test Item Value Reference Range Interpretation Comments GLYCOSYLATED HEMOGLOBIN (HA1C) 8.4 % A1C 4.2-6.3 H (test code = GLYHGB) ESTIMATED AVERAGE GLUCOSE (test 194 MG/DLest code = EAG) GLUCOSE BEDSIDE [id number] 16:14:00 Test Item Value Reference Range Interpretation Comments GLUCOSE BEDSIDE TESTING (test code 367 mg/dL 70-110 H = GLUBED) GLUCOSE BEDSIDE [id number] 13:25:00 Test Item Value Reference Range Interpretation Comments GLUCOSE BEDSIDE TESTING (test code 306 mg/dL 70-110 H = GLUBED) CBC W/AUTO [id number] 11:58:00 Test Item Value Reference Range Interpretation Comments WHITE BLOOD CELL (test 15.7 K/mm3 3.5-11.0 H code = WBC) RED BLOOD CELL (test 4.15 M/mm3 4.70-6.10 L code = RBC) HEMOGLOBIN (test code 13.1 G/DL 12.3-15.9 N = HGB) HEMATOCRIT (test code 40.3 % 35.8-46.7 N = HCT) MEAN CELL VOLUME (test 97.1 Fl 86.3-98.9 N code = MCV) MEAN CELL HGB (test 31.6 pg 28.9-34.4 N code = MCH) MEAN CELL HGB 32.5 G/DL 32.1-34.5 N CONCETRATION (test code = MCHC) RED CELL DISTRIBUTION 12.8 SD 11.5-14.5 N WIDTH (test code = RDW) PLATELET COUNT (test 268.0 K/mm3 150-450 N code = PLT) MEAN PLATELET VOLUME 9.80 fL 7.0-9.6 H (test code = MPV) NEUTROPHIL % (test 95.2 % 40-76 H code = NT%) LYMPHOCYTE % (test 2.9 % 20.5-51.1 L code = LY%) MONOCYTE % (test code 0.8 % 1.7-9.3 L = MO%) EOSINOPHIL % (test 0.8 % 0.0-6.0 N code = EO%) BASOPHIL % (test code 0.3 % 0.0-2.0 N = BA%) NEUTROPHIL # (test 14.98 K/mm3 1.8-7.6 H code = NT#) LYMPHOCYTE # (test 0.5 K/mm3 0.6-3.0 L code = LY#) MONOCYTE # (test code 0.1 K/mm3 0.2-1.5 L = MO#) EOSINOPHIL # (test 0.1 K/mm3 0.0-0.4 N code = EO#) BASOPHIL # (test code 0.0 K/mm3 0.0-0.2 N = BA#) MANUAL DIFF REQUIRED NO DIFF/SCN CRITERIA SLIDE R MAIN (test code = MDIFF) CONSISTA NT WITH AUTO DIFFERENTIAL. - XR CHEST 1 [id number] 11:18:00 Name: BORIS AKBAR [facility] : 1980 Age/S: 38 / M [address] [address] [place] Unit #: [id number] Loc: [place] [address] Phys: Gallo Brewer MD Acct: [id number] Dis Date: Status: REG ER PHONE #: [phone] Exam Date: 01/04/2019 1047 FAX #: Reason: cough EXAMS: CPT: [id number] XR CHEST 1 V [id number] Fluoro Time: DAP (Gy m2): Air Kerma [...] PAGE 1 Signed Report Name: BORIS AKBAR [place] : 1980 Age/S: 38 / M [address] [address] [place] Unit #: [id number]: Tim Mendez [address] Phys: Gallo Brewer MD Acct: [id number] Dis Date: Status: REG ER PHONE #: [phone] Exam Date: 01/04/2019 1045 FAX #: Reason: cough EXAMS: CPT: [id number] XR CHEST 1 V [id number] Fluoro Time: DAP (Gy m2): Air Kerma (mGy): <Continued> Technologist: Jose Carrillo RT(R)(CT) Trnscb Date/Time: 01/04/2019 (1118) [email or web address] Orig Print D/T: S: 01/04/2019 (1121) PAGE 2 Signed ReportBASIC METABOLIC [id number] 11:08:00 Test Item Value Reference Range Interpretation Comments SODIUM (test code = NA) 141 mmol/L 134-147 N POTASSIUM (test code = 3.9 mmol/L 3.4-5.0 N K) CHLORIDE (test code = 111 mmol/L 100-108 H CL) CARBON DIOXIDE (test 25 mmol/L 21-32 N code = CO2) ANION GAP (test code = 5.0 GAP calc 4.0-15.0 N GAP) GLUCOSE (test code = 271 MG/DL 70-110 H GLU) BLOOD UREA NITROGEN 26 MG/DL 7-18 H (test code = BUN) GLOMERULAR FILTRATION >=60 max estimate >60 RATE (test code = GFR) estGFR CREATININE (test code = 1.1 MG/DL 0.8-1.3 N CREAT) CALCIUM (test code = CA) 7.8 MG/DL 8.5-10.1 L BASIC METABOLIC [id number] 11:07:00 Test Item Value Reference Range Interpretation Comments SODIUM (test code = NA) 141 mmol/L 134-147 N POTASSIUM (test code = K) 3.9 mmol/L 3.4-5.0 N CHLORIDE (test code = CL) 111 mmol/L 100-108 H CARBON DIOXIDE (test code = CO2) 25 mmol/L 21-32 N ANION GAP (test code = GAP) 5.0 GAP calc 4.0-15.0 N GLUCOSE (test code = GLU) 271 MG/DL 70-110 H BLOOD UREA NITROGEN (test code = 26 MG/DL 7-18 H BUN) GLOMERULAR FILTRATION RATE (test estGFR >60 code = GFR) CREATININE (test code = CREAT) MG/DL 0.8-1.3 CALCIUM (test code = CA) 7.8 MG/DL 8.5-10.1 L CBC W/AUTO [id number] 10:58:00 Test Item Value Reference Range Interpretation Comments WHITE BLOOD CELL (test code = 15.7 K/mm3 3.5-11.0 H WBC) RED BLOOD CELL (test code = RBC) 4.15 M/mm3 4.70-6.10 L HEMOGLOBIN (test code = HGB) 13.1 G/DL 12.3-15.9 N HEMATOCRIT (test code = HCT) 40.3 % 35.8-46.7 N MEAN CELL VOLUME (test code = 97.1 Fl 86.3-98.9 N MCV) MEAN CELL HGB (test code = MCH) 31.6 pg 28.9-34.4 N MEAN CELL HGB CONCETRATION (test 32.5 G/DL 32.1-34.5 N code = MCHC) RED CELL DISTRIBUTION WIDTH (test 12.8 SD 11.5-14.5 N code = RDW) PLATELET COUNT (test code = PLT) 268.0 K/mm3 150-450 N MEAN PLATELET VOLUME (test code = 9.80 fL 7.0-9.6 H MPV) NEUTROPHIL % (test code = NT%) % 40-76 H LYMPHOCYTE % (test code = LY%) % 20.5-51.1 L MONOCYTE % (test code = MO%) % 1.7-9.3 L EOSINOPHIL % (test code = EO%) % 0.0-6.0 N BASOPHIL % (test code = BA%) % 0.0-2.0 N NEUTROPHIL # (test code = NT#) K/mm3 1.8-7.6 H LYMPHOCYTE # (test code = LY#) K/mm3 0.6-3.0 L MONOCYTE # (test code = MO#) K/mm3 0.2-1.5 L EOSINOPHIL # (test code = EO#) K/mm3 0.0-0.4 N BASOPHIL # (test code = BA#) K/mm3 0.0-0.2 N MANUAL DIFF REQUIRED (test code = DIFF/SCN CRITERIA MDIFF) LACTIC ACID [id number] 10:56:00 Test Item Value Reference Range Interpretation Comments LACTIC ACID POC (test code = 1.08 MMOL/L 0.90-1.70 N LACTP)
[2021-01-21] MEDS ORDERED: ONDANSETRON 4 MG/2 ML VIAL ONE (20:00)
[2021-01-21 20:24] LABS: Basophils % 0.9 % (0-1.3); Lymphocytes % 7.2 % (15.3-44.8); MPV 8.5 fL (7.6-11.3); RBC Red Blood Cell Count 4.39 M/uL (4.33-5.43)
[2021-01-21 20:57] LABS: ALT/SGPT 36 U/L (12-78); AST/SGOT 24 U/L (15-37); Albumin 3.4 g/dL (3.4-5.0); Alkaline Phosphatase 109 U/L (45-117); BUN Blood Urea Nitrogen 38 mg/dL (7-18); Bilirubin Direct 0.3 mg/dL (0-0.2); Bilirubin Total 1.6 mg/dL (0.2-1.0); Glucose Level 667 mg/dL (74-106); Lipase 78 U/L (73-393); Potassium 5.5 mmol/L (3.5-5.1); Protein, Total 7.5 g/dL (6.4-8.2); Sodium Level 133 mmol/L (136-145)
[2021-01-21 21:03] LABS: Bicarbonate 14 mmol/L (21-32)
--- NOTE | 2021-01-21 21:07 | ER ---
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 N/V since this morning. BG was 358 at 1730 this evening. Coronavirus screen: At this time, the client does not indicate any symptoms associated with coronavirus-19. Ebola Screen: No symptoms or risks identified at this time. Initial Sepsis Screen: Does the patient meet any 2 criteria? No. Patient's initial sepsis screen is negative. Does the patient have a suspected source of infection? No. Patient's initial sepsis screen is negative. Risk Assessment: Do you want to hurt yourself or someone else? Patient reports no desire to harm self or others. Onset of symptoms was January 21, 2021. 19:50 Method Of Arrival: Ambulatory ss 19:50 Acuity: WEI 2 ss Triage Assessment: 19:53 General: Appears in no apparent distress. comfortable, Behavior is calm, cooperative, ss appropriate for age. Pain: Complains of pain in back Pain does not radiate. Pain currently is 7 out of 10 on a pain scale. Quality of pain is described as throbbing, Pain began gradually, Is continuous. EENT: No signs and/or symptoms were reported regarding the EENT system. Neuro: Level of Consciousness is awake, alert, obeys commands, Oriented to person, place, time, situation. Cardiovascular: Capillary refill < 3 seconds Patient's skin is warm and dry. Respiratory: Airway is patent Respiratory effort is even, unlabored, Respiratory pattern is regular, symmetrical. GI: Abdomen is flat, non-distended. : No signs and/or symptoms were reported regarding the genitourinary system. Derm: No signs and/or symptoms reported regarding the dermatologic system. Musculoskeletal: Reports pain in back. Historical: - Allergies: 19:53 No Known Allergies; ss - Home Meds: 19:53 Humalog 100 unit/mL Sub-Q crtg sliding scale [Active]; Insulin: Novolin R Sub-Q ss [Active]; Tresiba FlexTouch U-100 100 unit/mL (3 mL) subcutaneous inpn 25 unit daily [Active]; Insulin: Humulin L Sub-Q 100 unit/mL daily [Active]; - PMHx: 19:53 Diabetes - IDDM; ss - PSHx: 19:53 Nasal surgery; ss - Immunization history:: Adult Immunizations up to date, Client reports receiving the 2nd dose of the Covid vaccine. - Social history:: Smoking status: Patient denies any tobacco usage or history of. Patient uses alcohol, occasionally. Screenin:40 Abuse screen: Denies threats or abuse. Nutritional screening: No deficits noted. bb Tuberculosis screening: No symptoms or risk factors identified. Fall Risk None identified. Assessment: 21:40 General: Appears distressed, ill, Behavior is cooperative. Neuro: Level of bb Consciousness is awake, alert, obeys commands, Oriented to person, place, time, situation. Cardiovascular: Heart tones S1 S2 present Capillary refill < 3 seconds Rhythm is sinus tachycardia. Respiratory: Respiratory effort is labored, Respiratory pattern is Kussmaul. GI: Abdomen is non-distended, Reports vomiting. Derm: Skin is pale. Musculoskeletal: Circulation, motion, and sensation intact. 22:45 Reassessment: Patient and/or family updated on plan of care and expected duration. Pain bb level reassessed. pt appears more comfortable is not shaking, IV sites intact, patent, with fluids infusing, FSBS completed and lab draw for glucose sent. Pt aware of need for admit and verbalized understanding of and agree to plan of care see [facility] for further charting. Vital Signs: 19:50 BP 117 / 71; Pulse 129; Resp 24; Temp 97.8(O); Pulse Ox 100% on R/A; Weight 74.84 kg; Height 5 ft. 9 in. (175.26 cm); Pain 7/10; 21:40 BP 133 / 55; Pulse 135; Resp 24 S; Temp 98(O); Pulse Ox 100% on R/A; bb 22:45 BP 134 / 59; Pulse 127; Resp 20 S; Pulse Ox 99% on R/A; bb 19:50 Body Mass Index 24.37 (74.84 kg, 175.26 cm) ED Course: 19:12 Patient arrived in ED. wm 19:52 Nadia Tinsley FNP-C [facility]. kb 19:52 Carl Bernabe MD is Attending Physician. kb 19:53 Triage completed. ss 19:53 Arm band placed on right wrist. ss 20:19 COVID-19 SARS RT PCR (Document "Date of Onset" if Symptomatic) Sent. ld1 20:20 Inserted saline lock: 20 gauge in right antecubital area, using aseptic technique. ld1 Blood collected. 21:06 Jesus Lazo is Hospitalizing Provider. kb 21:34 Cici Tellez, KACEY is Primary Nurse. bb 21:40 Awaiting bed assignment. bb 21:40 Patient has correct armband on for positive identification. Placed in gown. Bed in low bb position. Call light in reach. Side rails up X 1. Adult w/ patient. library monitor on. Pulse ox on. NIBP on. pt put in hospital bed given extra blankets. 22:54 No provider procedures requiring assistance completed. Patient admitted, IV remains in bb place. 23:28 Glucose Sent. bb Administered Medications: 20:19 Drug: Zofran (Ondansetron) 4 mg Route: IVP; Site: right antecubital; ld1 20:19 Follow up: Response: No adverse reaction ld1 21:26 Drug: NS 0.9% 1000 ml Route: IV; Rate: 1000 ml; Site: right antecubital; bb 22:55 Follow up: IV Status: Completed infusion; IV Intake: 1000ml bb 21:27 Drug: NS 0.9% 1000 ml Route: IV; Rate: 1000 ml; Site: right antecubital; bb 22:56 Follow up: IV Status: Completed infusion; IV Intake: 1000ml bb 21:28 Drug: Insulin Drip - (Insulin Regular Human 100 units, NS 0.9% 100 ml) {Co-Signature: bb precious1 (Dinah Tobar RN).} Route: IV; Rate: calculated rate; Site: right antecubital; 22:56 Follow up: IV Status: Infusion continued upon admission bb 21:28 Drug: Insulin Regular Human 10 units {Co-Signature: precious1 (Dinah Tobar RN).} Route: IVP; bb Site: right antecubital; 22:56 Follow up: Response: No adverse reaction bb 22:56 Drug: NS 0.45 % 1000 ml Route: IV; Rate: 250 ml/hr; Site: right antecubital; bb 22:57 Follow up: IV Status: Infusion continued upon admission bb 23:23 Follow up: IV Status: Infusion continued upon admission bb Intake: 22:55 IV: 1000ml; Total: 1000ml. bb 22:56 IV: 1000ml; Total: 2000ml. bb Outcome: 21:06 Decision to Hospitalize by Provider. kb 21:40 Instructed on the need for admit. bb 22:54 Admitted to ER Hold. Please see [facility] for further documentation. bb 22:54 critical 01/22 18:20 Patient left the ED. [email or web address] Signatures: Nadia Tinsley, FIRE PREVENTION RESEARCH ENGINEER-C FIRE PREVENTION RESEARCH ENGINEER-Cici Wharton, RN RN bb Vivi Ann, RN RN Melinda Euceda RN RN vg1 Dorinda Mata RN RN 1 Yaz Jack Dinah Tobar RN lp1
--- NOTE | 2021-01-21 21:07 | EDPHYS ---
Physician Documentation [facility] Name: Chang Ferrer Age: 40 yrs Sex: Male : 1980 Arrival Date: 01/21/2021 Time: 19:12 Bed 15 Private MD: ED Physician Carl Bernabe HPI: 01/21 21:28 This 40 yrs old Unknown Male presents to ER via Ambulatory with complaints of DKA S/S kb Per Pt. 21:29 The patient presents to the emergency department with nausea, vomiting. Onset: The kb symptoms/episode began/occurred today. Possible causes: unknown. The symptoms are aggravated by nothing. The symptoms are alleviated by nothing. Associated signs and symptoms: Pertinent positives: nausea, vomiting, Pertinent negatives: abdominal pain, fever. Severity of symptoms: At their worst the symptoms were moderate in the emergency department the symptoms are unchanged. The patient has experienced similar episodes in the past, several times. The patient has not recently seen a physician. Pt reports cough and allergies for a few days, today has had nausea, vomiting and unable to control blood sugar. . Historical: - Allergies: 19:53 No Known Allergies; ss - Home Meds: 19:53 Humalog 100 unit/mL Sub-Q crtg sliding scale [Active]; Insulin: Novolin R Sub-Q ss [Active]; Tresiba FlexTouch U-100 100 unit/mL (3 mL) subcutaneous inpn 25 unit daily [Active]; Insulin: Humulin L Sub-Q 100 unit/mL daily [Active]; - PMHx: 19:53 Diabetes - IDDM; ss - PSHx: 19:53 Nasal surgery; ss - Immunization history:: Adult Immunizations up to date, Client reports receiving the 2nd dose of the Covid vaccine. - Social history:: Smoking status: Patient denies any tobacco usage or history of. Patient uses alcohol, occasionally. ROS: 21:27 Constitutional: Negative for fever, chills, and weight loss. kb 21:27 Respiratory: Positive for cough, Negative for dyspnea on exertion, hemoptysis, orthopnea, pleurisy, shortness of breath, sputum production, wheezing. 21:27 Abdomen/GI: Positive for nausea and vomiting, Negative for abdominal pain. 21:27 Endocrine: Positive for hyperglycemia. 21:27 All other systems are negative. Exam: 21:27 Head/Face: Normocephalic, atraumatic. ENT: Moist Mucous membranes Cardiovascular: kb Regular rate and rhythm with a normal S1 and S2. No gallops, murmurs, or rubs. No pulse deficits. Respiratory: Respirations even and unlabored. No increased work of breathing, no retractions or nasal flaring. Abdomen/GI: Soft, non-tender. No distention Skin: Warm, dry with normal turgor. Normal color. MS/ Extremity: Pulses equal, no cyanosis. Neurovascular intact. Full, normal range of motion. Neuro: Awake and alert, GCS 15, oriented to person, place, time, and situation. Moves all extremities. Normal gait. Psych: Awake, alert, with orientation to person, place and time. Behavior, mood, and affect are within normal limits. 21:28 Constitutional: The patient appears alert, awake, uncomfortable. kb 21:53 ECG was reviewed by the Attending Physician. kb Vital Signs: 19:50 BP 117 / 71; Pulse 129; Resp 24; Temp 97.8(O); Pulse Ox 100% on R/A; Weight 74.84 kg; ss Height 5 ft. 9 in. (175.26 cm); Pain 7/10; 21:40 BP 133 / 55; Pulse 135; Resp 24 S; Temp 98(O); Pulse Ox 100% on R/A; bb 22:45 BP 134 / 59; Pulse 127; Resp 20 S; Pulse Ox 99% on R/A; bb 19:50 Body Mass Index 24.37 (74.84 kg, 175.26 cm) ss MDM: 19:52 Patient medically screened. kb 21:08 Data reviewed: vital signs, nurses notes. Data interpreted: Pulse oximetry: on room air kb is 100 %. Interpretation: normal. Counseling: I had a detailed discussion with the patient and/or guardian regarding: the historical points, exam findings, and any diagnostic results supporting the discharge/admit diagnosis, lab results, radiology results, the need for further work-up and treatment in the hospital. Physician consultation: Stanley CROFT was contacted at 21:08, regarding admission, to the ICU, patient's condition, and will see patient in ED. 01/21 19:53 Order name: Basic Metabolic Panel; Complete Time: 21:04 kb 01/21 19:53 Order name: CBC with Diff; Complete Time: 22:41 kb 01/21 19:53 Order name: Hepatic Function; Complete Time: 21:04 kb 01/21 19:53 Order name: Lipase; Complete Time: 21:04 kb 01/21 19:53 Order name: Acetone, Serum; Complete Time: 21:04 kb 01/21 19:58 Order name: COVID-19 SARS RT PCR (Document "Date of Onset" if Symptomatic); Complete kb Time: 22:13 01/21 20:26 Order name: Manual Differential; Complete Time: 22:41 EDMS 01/21 21:04 Order name: Glucose, Ancillary Testing; Complete Time: 21:07 EDMS 01/21 22:43 Order name: Glucose bb 01/21 22:53 Order name: Glucose, Ancillary Testing; Complete Time: 22:56 EDMS 01/21 23:23 Order name: Glucose Level; Complete Time: 23:28 EDMS 01/22 00:02 Order name: Glucose, Ancillary Testing; Complete Time: 01:23 EDMS 01/22 01:05 Order name: Glucose, Ancillary Testing; Complete Time: 01:23 EDMS 01/22 01:23 Order name: Basic Metabolic Panel; Complete Time: 01:24 EDMS 01/22 01:56 Order name: Glucose, Ancillary Testing EDMS 01/22 03:05 Order name: Glucose, Ancillary Testing EDMS 01/22 04:11 Order name: Glucose, Ancillary Testing EDMS 01/22 05:03 Order name: Glucose, Ancillary Testing EDMS 01/22 05:17 Order name: CBC with Automated Diff EDMS 01/22 05:19 Order name: Urine Dipstick-Ancillary EDMS 01/22 05:31 Order name: Basic Metabolic Panel EDMS 01/22 05:31 Order name: Uric Acid EDMS 01/22 05:31 Order name: Phosphorus EDMS 01/22 05:31 Order name: Creatine Phosphokinase EDMS 01/22 05:31 Order name: Lipid Profile EDMS 01/22 05:31 Order name: Magnesium EDMS 01/22 05:38 Order name: Hemoglobin A1c EDMS 01/22 06:06 Order name: Glucose, Ancillary Testing EDMS 01/22 07:01 Order name: Glucose, Ancillary Testing EDMS 01/22 07:51 Order name: Potassium EDMS 01/21 19:53 Order name: IV Saline Lock; Complete Time: 20:19 kb 01/21 19:53 Order name: Labs collected and sent; Complete Time: 20:19 kb 01/21 19:53 Order name: EKG; Complete Time: 19:54 kb 01/21 19:53 Order name: EKG - Nurse/Tech; Complete Time: 21:52 kb 01/21 21:35 Order name: NPO: OK for sips water/ice chips; Complete Time: 23:28 la1 01/21 21:35 Order name: Chest Single View XRAY la1 01/22 08:01 Order name: Glucose, Ancillary Testing EDMS 01/22 08:44 Order name: RAD EDMS 01/22 08:54 Order name: US EDMS 01/22 09:01 Order name: Glucose, Ancillary Testing EDMS 01/22 09:47 Order name: Basic Metabolic Panel EDMS 01/22 10:10 Order name: Glucose, Ancillary Testing EDMS 01/22 11:26 Order name: Glucose, Ancillary Testing EDMS 01/22 13:03 Order name: Glucose, Ancillary Testing EDMS 01/22 13:23 Order name: Basic Metabolic Panel EDMS 01/22 17:42 Order name: Basic Metabolic Panel EDMS 01/22 18:04 Order name: Glucose, Ancillary Testing EDMS EC:53 Rate is 132 beats/min. Rhythm is regular. QRS [place] is Normal. MN interval is normal at kb 154 msec. QRS interval is normal at 80 msec. QT interval is normal at 290 msec. Administered Medications: 20:19 Drug: Zofran (Ondansetron) 4 mg Route: IVP; Site: right antecubital; ld1 20:19 Follow up: Response: No adverse reaction ld1 21:26 Drug: NS 0.9% 1000 ml Route: IV; Rate: 1000 ml; Site: right antecubital; bb 22:55 Follow up: IV Status: Completed infusion; IV Intake: 1000ml bb 21:27 Drug: NS 0.9% 1000 ml Route: IV; Rate: 1000 ml; Site: right antecubital; bb 22:56 Follow up: IV Status: Completed infusion; IV Intake: 1000ml bb 21:28 Drug: Insulin Drip - (Insulin Regular Human 100 units, NS 0.9% 100 ml) {Co-Signature: chelsey lp1 (Dinah Tobar RN).} Route: IV; Rate: calculated rate; Site: right antecubital; 22:56 Follow up: IV Status: Infusion continued upon admission bb 21:28 Drug: Insulin Regular Human 10 units {Co-Signature: lp1 (Dinah Tobar RN).} Route: IVP; bb Site: right antecubital; 22:56 Follow up: Response: No adverse reaction bb 22:56 Drug: NS 0.45 % 1000 ml Route: IV; Rate: 250 ml/hr; Site: right antecubital; bb 22:57 Follow up: IV Status: Infusion continued upon admission bb 23:23 Follow up: IV Status: Infusion continued upon admission bb Disposition: 01/22 19:06 Co-signature as Attending Physician, Carl Bernabe MD I agree with the assessment and rn plan of care. Attestation: The patient's history, exam findings, diagnostics, and a summary of any interventions or procedures was reviewed in detail with Nadia CROFT. Disposition Summary: 01/21/21 21:06 Hospitalization Ordered Hospitalization Status: Inpatient Admission kb Provider: Jesus Lazo Condition: Fair kb Problem: new kb Symptoms: are unchanged kb Bed/Room Type: Standard kb Location: Telemetry/MedSurg (Inpatient)(01/22/21 16:10) bd Room Assignment: 228(01/22/21 16:10) bd Diagnosis - Diabetes mellitus due to underlying condition with ketoacidosis without coma kb Forms: - Medication Reconciliation Form kb - SBAR form kb Signatures: Dispatcher [employer] EDMS Nadia Tinsley FNP-C FNP-Cyn Richardson Brenda, RN RN bb Nieto, Roman, MD MD rn Smirch, Shelby, RN RN ss Attema, Lee, FNP-C FNP-Cla1 Rut Moody RN RN cg Dibbern, Lauren, RN RN ld1 Dinah Tobar RN lp1 Corrections: (The following items were deleted from the chart) 01/21 21:28 21:27 Constitutional: This is a well developed, well nourished patient who is awake, kb alert, and in no acute distress. Head/Face: Normocephalic, atraumatic. ENT: Moist Mucous membranes Cardiovascular: Regular rate and rhythm with a normal S1 and S2. No gallops, murmurs, or rubs. No pulse deficits. Respiratory: Respirations even and unlabored. No increased work of breathing, no retractions or nasal flaring. Abdomen/GI: Soft, non-tender. No distention Skin: Warm, dry with normal turgor. Normal color. MS/ Extremity: Pulses equal, no cyanosis. Neurovascular intact. Full, normal range of motion. Neuro: Awake and alert, GCS 15, oriented to person, place, time, and situation. Moves all extremities. Normal gait. Psych: Awake, alert, with orientation to person, place and time. Behavior, mood, and affect are within normal limits. kb 22:16 21:06 Intensive Care Unit kb cg 22:16 21:06 kb cg 01/22 16:10 01/21 22:16 [facility] ER HOLD cg bd 01/22 16:10 01/21 22:16 ERHOLD- cg bd
[2021-01-21] MEDS ORDERED: NA CHLORIDE 0.9% 2,000 ML ONE (21:13)
[2021-01-21] MEDS ORDERED: INSULIN -REGULAR HUMAN 50 UNIT/0.5 ML ML ONE ×2 (21:15→21:32)
[2021-01-21] MEDS ORDERED: NA CHLORIDE 0.9% 100 ML ONE (21:33)
--- NOTE | 2021-01-21 21:48 | P.HP ---
Certification for Inpatient Patient admitted to: Inpatient With expected LOS: >2 Midnights Patient will require the following post-hospital care: None Practitioner: I am a practitioner with admitting privileges, knowledge of patient current condition, hospital course, and medical plan of care. Services: Services provided to patient in accordance with Admission requirements found in Title 42 Section 412.3 of the Code of Federal Regulations Patient History Date of Service: 01/21/21 Primary Care Provider: Brendon yanez Reason for admission: DKA, REJI History of Present Illness: 40-year-old male with history of diabetes metas type I, hypertension presents the emergency department for suspected DKA. Patient reports he has had chills, nausea, vomiting over the course of the last 3 days and his blood sugars have been uncontrolled. Patient reports he typically takes Tresiba 22 units daily as well as carb counting and sliding scale insulin to manage his blood sugar and that he had a A1c approximately 3 weeks ago which was elevated at 13. Patient has not had insulin adjusted since that time, has appointment coming up with his primary care doctor. Patient was evaluated in the emergency department labs were significant for white blood cell count 14.5 sodium 133 potassium 5.5 chloride 96 bicarb 14 BUN 38 creatinine 2.36 GFR 31 glucose 667 small acetone in serum anion gap of 23. Patient was given 2 L normal saline bolus and started on insulin drip in the emergency department, ED provider wishes to admit to ICU for further management of DKA, REJI. Patient's baseline GFR appears to be around 50 normal creatinine for him around 1.5. Allergies cedar leaf Allergy (Verified 05/19/18 15:10) unknown dog dander Allergy (Verified 05/19/18 15:10) unknown grass pollen Allergy (Verified 05/19/18 15:10) unknown cockroach Allergy (Uncoded 05/19/18 15:10) unknown Home Medications: Azelastine HCl [Astepro] 30 sprays NS DAILY 05/19/18 Fiber Juice Mix 3 dose PO DAILY 05/19/18 Fluticasone [Flonase 50mcg Nasal [place]] 2 sprays NS DAILY 05/19/18 Insulin Detemir [Levemir Flextouch] 20 unit SQ DAILY AFTER SUPPER 05/19/18 Insulin Lispro [Humalog Kwikpen U-100] 0 unit SQ TID 03/27/19 - Past Medical/Surgical History -: Diabetes mellitus type 1 -: Hypertension -: Sinus surgery Psychosocial/ Personal History: Patient is employed as a loan processor at [employer] - Family History Mother -: Diabetes Father -: Stroke - Social History Smoking Status: Never smoker Alcohol use: No CD- Drugs: No Caffeine use: Yes Place of Residence: Home Review of Systems 10-point ROS is otherwise unremarkable General: Chills, Weakness, Malaise Gastrointestinal: Nausea, Vomiting Physical Examination - Physical Exam General: Alert, In no apparent distress, Oriented x3 HEENT: Atraumatic, PERRLA, Other (Mucous membranes dry), EOMI, Sclerae nonicteric Neck: Supple, 2+ carotid pulse no bruit, No LAD, Without JVD or thyroid abnormality Respiratory: Clear to auscultation bilaterally, Normal air movement Cardiovascular: Regular rate/rhythm, Normal S1 S2 Gastrointestinal: Normal bowel sounds, No tenderness Musculoskeletal: No tenderness Integumentary: No rashes Neurological: Normal gait, Normal speech, Normal strength at 5/5 x4 extr, Normal tone, Normal affect Lymphatics: No axilla or inguinal lymphadenopathy - Studies Laboratory Data (last 24 hrs) 01/21/21 20:08: WBC 14.50 H, Hgb 13.7, Hct 42.0, Plt Count 343 01/21/21 20:08: Sodium 133 L, Potassium 5.5 H, BUN 38 H, Creatinine 2.36 H, Glucose 667 H*, Total Bilirubin 1.6 H, AST 24, ALT 36, Alkaline Phosphatase 109, Lipase 78 Assessment and Plan - Plan Assessment: Diabetes mellitus type 1 complicated with diabetic ketoacidosis without coma Acute renal failure superimposed on CKD 3 Hypertension Plan: Diabetes mellitus type 1 complicated with diabetic ketoacidosis without coma: Patient received 2 L normal saline bolus in the ER continue with half NS at 250 cc/h until sugar less than 200 then will switch to dextrose containing fluids until anion gap is closed. N.p.o. at this time as patient is with significant nausea and vomiting advance diet as tolerated to clear liquids until off of drip. Will obtain A1c, patient reports that he had one done approximately 1 month ago and was elevated around 13. Patient reports he takes Tresiba 22 units daily in addition to sliding scale insulin and carb counting, will likely need his insulin adjusted at discharge. Patient instructed to follow-up with endocrinology at discharge as well. Acute renal failure superimposed on CKD 3: Patient with acute renal failure this time will obtain renal ultrasound to continue with aggressive hydration. Anticipate clinical improvement over the course of the next 24 hours, will consult nephrology as necessary. Hypertension: Obtain and continue medication hold MARCELA inhibitor/ARB at this time given renal function. DVT PPX: Heparin Code status: Full Discharge Plan: Home Plan to discharge in: 48 Hours - Advance Directives Does patient have a Living Will: No Does patient have a Durable POA for Healthcare: No - Code Status/Comfort Care Code Status Assessed: Yes (Full code) Critical Care: No Time Spent Managing Pts Care (In Minutes): 55
[2021-01-21 22:34] LABS: Blood Morphology Comment NOT SEEN (NOT SEEN); Platelet Estimate ADEQ
[2021-01-21] MEDS ORDERED: INSULIN -REGULAR HUMAN 100 UNIT in NA CHLORIDE 0.9% 100 ML IV SCH (22:59)
[2021-01-21] MEDS: NACHLORIDE 0.45% 1,000 ML IV SCH (22:59)
[2021-01-21] MEDS ORDERED: ONDANSETRON 4 MG/2 ML VIAL IV PRN (22:59)
[2021-01-21] MEDS ORDERED: D5 0.45 NS 1,000 ML IV SCH (22:59)
[2021-01-21] MEDS ORDERED: NACHLORIDE 0.45% 1,000 ML IV ONE (23:02)
[2021-01-22 00:07] VITALS: BMI 24.3
[2021-01-22 01:14] LABS: Potassium 4.3 mmol/L (3.5-5.1)
[2021-01-22] MEDS ORDERED: D5 0.45 NS 1,000 ML IV ONE (03:27)
[2021-01-22] MEDS: NACHLORIDE 0.45% 1,000 ML IV SCH ×3 (03:45→20:20)
[2021-01-22 05:01] LABS: Absolute Lymphocytes (CBC) 2.3 K/uL (0.7-4.9); Basophils % 0.8 % (0-1.3); Hematocrit 32.2 % (39.6-49.0); Lymphocytes % 16.8 % (15.3-44.8); MPV 7.3 fL (7.6-11.3); RBC Red Blood Cell Count 3.52 M/uL (4.33-5.43)
[2021-01-22 05:19] LABS: Urine Blood Trace-intact (Negative); Urine Glucose 2+ (Negative); Urine Protein 3+ (Negative); Urine Specific Gravity 1.025 (1.005-1.030)
[2021-01-22 05:31] LABS: Magnesium 2.2 mg/dL (1.8-2.4); Phosphorus 2.2 mg/dL (2.5-4.9); Potassium 3.8 mmol/L (3.5-5.1); Uric Acid 8.6 mg/dL (3.5-7.2)
[2021-01-22] MEDS ORDERED: POTASSIUM PHOS IN 0.9 % NACL 15 MMOL/250 ML BAG IV ONE (07:02)
--- NOTE | 2021-01-22 07:05 | EKG ---
Test Date: 2021-01-21 Test Time: 21:51:38 Gardening Instructor: EVETTE MEASUREMENT RESULTS: Intervals: Rate: 132 WV: 154 QRSD: 80 QT: 290 QTc: 429 Mikado: P: 72 WV: 154 QRS: 72 T: 50 INTERPRETIVE STATEMENTS: Sinus tachycardia Right atrial enlargement Borderline ECG Compared to ECG 02/17/2019 18:45:50 No significant changes Electronically Signed On 01-22-21 07:04:29 KNITTING DEMONSTRATOR by Lionel Boykin
[2021-01-22] MEDS ORDERED: INFLUENZA VACCINE (for 6+ mo) 0.5 ML DOSE IMVAC ONE (08:00)
--- NOTE | 2021-01-22 08:44 | RAD REPORT ---
EXAM DESCRIPTION: RAD - Chest Single View - 01/21/2021 10:14 pm CLINICAL HISTORY: COUGH Chest pain. COMPARISON: Chest Pa And Lat (2 Views) dated 02/17/2019 FINDINGS: Portable technique limits examination quality. The lungs are grossly clear. The heart is normal in size. No displaced fractures. IMPRESSION: No acute intrathoracic process suspected.
--- NOTE | 2021-01-22 08:54 | RAD REPORT ---
EXAM DESCRIPTION: US - Renal Ultrasound-Complete - 01/21/2021 11:32 pm CLINICAL HISTORY: dany Flank pain COMPARISON: No comparisons FINDINGS: Both kidneys are normal in size, shape and echotexture. The right kidney measures 10.2 x 5.8 x 5.4 cm. No hydronephrosis, focal mass or perinephric fluid. The left kidney measures 9.8 x 5.0 x 4.6 cm. No hydronephrosis, focal mass or perinephric fluid. The urinary bladder is incompletely distended without gross abnormality seen. IMPRESSION: Unremarkable renal sonogram.
[2021-01-22 09:47] LABS: Potassium 3.9 mmol/L (3.5-5.1)
[2021-01-22] MEDS ORDERED: GLUCAGON 1 MG/VIAL IM PRN (10:33)
[2021-01-22] MEDS ORDERED: D50W 25 GM/50 ML SYRINGE IV PRN (10:33)
[2021-01-22] MEDS ORDERED: INSULIN GLARGINE 100 UNIT/ML SQ SCH (11:00)
[2021-01-22] MEDS ORDERED: HEPARIN 5000 UNIT/ML 1 ML VIAL ONE (11:21)
[2021-01-22] MEDS ORDERED: INSULIN GLARGINE 100 UNIT/ML SQ ONE ×2 (11:22→17:00)
[2021-01-22] MEDS ORDERED: INSULIN -REGULAR HUMAN 50 UNIT/0.5 ML ML ONE ×2 (11:23→18:04)
[2021-01-22] MEDS ORDERED: NACHLORIDE 0.45% 1,000 ML IV ONE (11:25)
[2021-01-22] MEDS: INSULIN -REGULAR HUMAN 50 UNIT/0.5 ML ML SQ SCH ×3 (11:30→21:00)
[2021-01-22] MEDS: HEPARIN 5000 UNIT/ML 1 ML VIAL SQ SCH ×2 (11:42→20:15)
[2021-01-22 13:22] LABS: Potassium 3.8 mmol/L (3.5-5.1)
[2021-01-22 18:39] VITALS: O2SAT 99
--- NOTE | 2021-01-22 19:44 | P.PN ---
Subjective Date of Service: 01/22/21 Primary Care Provider: Brendon yanez Chief Complaint: DKA, REJI Patient has no new symptoms. DKA resolved. Physical Examination - Vital Signs Temperature: 98.5 F Blood Pressure: 148/83 Pulse: 108 Respirations: 18 Pulse Ox (%): 100 - Physical Exam General: Alert, In no apparent distress, Oriented x3 HEENT: Mucous membr. moist/pink, Sclerae nonicteric Neck: JVD not distended Respiratory: Clear to auscultation bilaterally, Normal air movement Cardiovascular: No edema, Normal S1 S2, Other (Tachycardia) Gastrointestinal: Normal bowel sounds, Soft and benign, Non-distended, No tenderness Musculoskeletal: No swelling, No tenderness Integumentary: No rashes, No erythema Neurological: Normal speech, Normal strength at 5/5 x4 extr - Studies Laboratory Data (last 24 hrs) 01/21/21 20:08: WBC 14.50 H, Hgb 13.7, Hct 42.0, Plt Count 343 01/21/21 20:08: Sodium 133 L, Potassium 5.5 H, BUN 38 H, Creatinine 2.36 H, Glucose 667 H*, Total Bilirubin 1.6 H, AST 24, ALT 36, Alkaline Phosphatase 109, Lipase 78 Assessment And Plan - Current Problems (Diagnosis) (1) DKA (diabetic ketoacidosis) Current Visit: Yes Status: Acute (2) Acute renal failure Current Visit: Yes Status: Acute - Plan DKA resolved. Patient transition to subcutaneous insulin-Lantus insulin and insulin sliding scale. Continue IV hydration for REJI. I suspect patient has baseline chronic kidney disease from diabetic nephropathy. ADA diet. Possible discharge in a.m.
[2021-01-22] MEDS ORDERED: FAMOTIDINE 20 MG/2 ML VIAL IV PRN (21:12)
[2021-01-22] MEDS ORDERED: DIPHENHYDRAMINE 25 MG TAB/CAP PO ONE (22:16)
[2021-01-22 23:22] LABS: Urine Appearance CLEAR (Clear); Urine Bilirubin NEGATIVE (Negative); Urine Blood TRACE (Negative); Urine Color YELLOW (Yellow); Urine Glucose TRACE (Negative); Urine Protein 2+ (Negative); Urine Specific Gravity 1.015 (1.005-1.030); Urine Urobilinogen 0.2 mg/dL (0.2-1.0)
[2021-01-22 23:30] LABS: Urine Microscopic Reflex ORDER UMIC
[2021-01-22 23:46] LABS: Urine Bacteria <20 /HPF (NONE SEEN); Urine RBC <5 /HPF (NONE SEEN); Urine Urothelial Cells <5 /HPF (NONE SEEN)
[2021-01-23] MEDS: AMLODIPINE 10 MG TAB PO SCH ×2 (05:00→10:30)
[2021-01-23 06:06] LABS: Absolute Lymphocytes (CBC) 2.7 K/uL (0.7-4.9); Basophils % 1.2 % (0-1.3); Hematocrit 36.9 % (39.6-49.0); Lymphocytes % 28.5 % (15.3-44.8); MPV 8.4 fL (7.6-11.3); RBC Red Blood Cell Count 3.98 M/uL (4.33-5.43)
[2021-01-23] MEDS: NACHLORIDE 0.45% 1,000 ML IV SCH (06:26)
[2021-01-23 06:37] LABS: Phosphorus 1.9 mg/dL (2.5-4.9)
[2021-01-23 06:38] LABS: Magnesium 1.8 mg/dL (1.8-2.4); Potassium 4.1 mmol/L (3.5-5.1)
[2021-01-23] MEDS ORDERED: MAGNESIUM SULFATE 1 gm IVPB 1 GM/100 ML BAG IV ONE (06:46)
[2021-01-23] MEDS: POTASS/SODIUM PHOSPHATE 1 PKT POWD.PACK PO SCH ×3 (06:55→10:30)
[2021-01-23] MEDS: INSULIN -REGULAR HUMAN 50 UNIT/0.5 ML ML SQ SCH (07:30)
[2021-01-23 08:28] VITALS: BP 176/89; TEMP 97.9
[2021-01-23] MEDS: HEPARIN 5000 UNIT/ML 1 ML VIAL SQ SCH (08:44)
[2021-01-23] MEDS ORDERED: INSULIN GLARGINE 100 UNIT/ML SQ SCH (09:00)
[2021-01-23] MEDS ORDERED: CETIRIZINE HCL 5 MG TABLET PO PRN (10:20)
--- NOTE | 2021-01-23 10:31 | P.DS ---
Admission Date: 01/21/21 Discharge Date: 01/23/21 Primary Care Provider: [facility] Disposition: ROUTINE DISCHARGE Discharge Condition: FAIR Reason for Admission: DKA, REJI - Problems (1) DKA (diabetic ketoacidosis) Current Visit: Yes Status: Acute (2) Acute renal failure Current Visit: Yes Status: Acute (3) Uncontrolled hypertension Current Visit: Yes Status: Acute Brief History of Present Illness: 40-year-old male with history of diabetes metas type I, hypertension presents the emergency department for suspected DKA. Patient reported chills, nausea, vomiting over the course of 3 days. Stated his blood sugar have been out of control. Patient reports he typically takes Tresiba 22 units daily as well as carb counting and sliding scale insulin to manage his blood sugar and that he had a A1c approximately 3 weeks ago which was elevated at 13. Patient has not had insulin adjusted since that time, has appointment coming up with his primary care doctor. Patient was evaluated in the emergency department labs were significant for white blood cell count 14.5 sodium 133 potassium 5.5 chloride 96 bicarb 14 BUN 38 creatinine 2.36 GFR 31 glucose 667 small acetone in serum anion gap of 23. Patient was given 2 L normal saline bolus and started on insulin drip in the emergency department. Patient admitted for further management of DKA with REJI. Hospital Course: Patient admitted to the ICU for DKA treatment. She was treated with aggressive IV fluid resuscitation and insulin drip. DKA resolved within 24 hours and patient transitioned to subcutaneous insulin- Lantus insulin and insulin sliding scale. REJI improved. I suspect patient has baseline chronic kidney disease from diabetic nephropathy. Patient tolerated diet. Lantus insulin titrated to 25 units with prescription his blood sugar between 118-169. No evidence of infection identified. He was started on oral amlodipine for hypertension. Patient deemed clinically stable for discharge. He will need follow-up with his PCP for insulin dose adjustment and blood pressure management. Vital Signs/Physical Exam: Temp Pulse Resp BP Pulse Ox 97.9 F 106 H 18 176/89 H 97 01/23/21 08:00 01/23/21 08:00 01/23/21 08:00 01/23/21 08:00 01/23/21 08:00 General: Alert, In no apparent distress, Oriented x3 HEENT: PERRLA, Mucous membr. moist/pink Neck: JVD not distended Respiratory: Clear to auscultation bilaterally, Normal air movement Cardiovascular: No edema, Regular rate/rhythm, Normal S1 S2 Gastrointestinal: Normal bowel sounds, Soft and benign, Non-distended, No tenderness Musculoskeletal: No swelling, No tenderness Integumentary: No rashes, No erythema Neurological: Normal speech, Normal strength at 5/5 x4 extr Laboratory Data at Discharge: WBC 9.50 K/uL (4.3-10.9) D 01/23/21 05:19 Hgb 12.5 g/dL (13.6-17.9) L 01/23/21 05:19 Hct 36.9 % (39.6-49.0) L 01/23/21 05:19 Plt Count 259 K/uL (152-406) 01/23/21 05:19 Sodium 140 mmol/L (136-145) 01/23/21 05:19 Potassium 4.1 mmol/L (3.5-5.1) 01/23/21 05:19 BUN 20 mg/dL (7-18) H 01/23/21 05:19 Creatinine 1.35 mg/dL (0.55-1.3) H 01/23/21 05:19 Glucose 133 mg/dL (74-106) H 01/23/21 05:19 Uric Acid 8.6 mg/dL (3.5-7.2) H 01/22/21 04:52 Phosphorus 1.9 mg/dL (2.5-4.9) L 01/23/21 05:19 Magnesium 1.8 mg/dL (1.8-2.4) 01/23/21 05:19 Total Bilirubin 1.6 mg/dL (0.2-1.0) H 01/21/21 20:08 AST 24 U/L (15-37) 01/21/21 20:08 ALT 36 U/L (12-78) 01/21/21 20:08 Alkaline Phosphatase 109 U/L (45-117) 01/21/21 20:08 Triglycerides 145 mg/dL (<150) 01/22/21 04:52 Cholesterol 192 mg/dL (<200) 01/22/21 04:52 HDL Cholesterol 78 mg/dL (40-60) H 01/22/21 04:52 Cholesterol/HDL Ratio 2.46 01/22/21 04:52 Lipase 78 U/L ([id number]) 01/21/21 20:08 Home Medications: Fluticasone [Flonase 50MCG Nasal [place]*] 2 sprays NS DAILY 05/19/18 Amlodipine [Norvasc*] 10 mg PO DAILY #30 tab 01/23/21 Cetirizine HCl [Zyrtec*] 10 mg PO DAILY PRN #30 tablet 01/23/21 Insulin Degludec [Tresiba] 25 unit SQ DAILY #1 vial 01/23/21 New Medications: Amlodipine [Norvasc*] 10 mg PO DAILY #30 tab Insulin Degludec [Tresiba] 25 unit SQ DAILY #1 vial Cetirizine HCl [Zyrtec*] 10 mg PO DAILY PRN #30 tablet PRN Reason: Allergies Diet: ADA Activity: Ad franklin Followup: NONE,NONE [Primary Care Provider] - 1 Week Time spent managing pt's care (in minutes): 36
[2021-01-23] MEDS ORDERED: AMLODIPINE 10 MG TAB PO ONE (22:15)
== END 2021-01-23 11:52 | disposition home or self-care (01) | DRG 638 ==
LOC: ER 19:08 → ERHOLD 21:36 → 2ND 01-22 18:04
PROVIDERS: ADMIT Internal Medicine; ATTEND Internal Medicine
DX: E10.10 Type 1 diabetes mellitus with ketoacidosis without coma (principal); N17.9 Acute kidney failure, unspecified; I12.9 Hypertensive chronic kidney disease with stage 1 through stage 4 chronic kidney disease, or unspecified chronic kidney disease; N18.30 Chronic kidney disease, stage 3 unspecified; Z79.4 Long term (current) use of insulin; Z91.09 Other allergy status, other than to drugs and biological substances; Z79.899 Other long term (current) drug therapy; Z20.822 Contact with and (suspected) exposure to COVID-19
CPT/HCPCS: 36415; 71045; 76770; 80048; 80061; 80076; 81003; 81015; 82010; 82550; 82947; 83036; 83690; 83735; 84100; 84132; 84550; 85025; 93005; 96365; 96375; 99285; J1644; J2405; J3475; J7030; J7799; U0003